=== PATIENT | female | born 1995 | race Caucasian/White ===

== ENCOUNTER 2019-01-01 03:37 | Inpatient (IN) ==
[2019-01-01] MEDS ORDERED: Isovue-370 500 ML BOTTLE IVP ONE (03:39)
--- NOTE | 2019-01-01 04:17 | Emergency Department Note ---
Disposition Clinical Impression: Septic embolism, IV drug user, Neck pain Fever Qualifiers: Fever type: unspecified Qualified Code(s): R50.9 - Fever, unspecified Headache Qualifiers: Headache type: unspecified Headache chronicity pattern: acute headache Intractability: not intractable Qualified Code(s): R51 - Headache Disposition: Admitted As Inpatient Condition: Fair Referrals: NONE,PCP [Primary Care Provider] - Forms: ED Satisfaction Letter General Adult HPI - General Chief complaint: ED Fever Time Seen by Provider: 01/01/19 03:39 Source: patient, EMS Mode of arrival: EMS Limitations: altered mental status Nursing Notes Reviewed: Yes Vital Signs Reviewed: Yes - History of Present Illness HPI Narrative: 23-year-old female previously seen a few hours ago and left AMA. Please refer to previous documentation for full history of present illness. Patient states she is "ready to get checked out". In the room she is thrashing around on the bed. Alert and oriented. Patient denies any new symptoms at this time. Pain Scale: 0 - Related Data Home Medications Medication Instructions Recorded Confirmed Albuterol Sulfate [Ventolin Hfa] 2 puff IH QID PRN 12/31/18 12/31/18 Allergies Allergy/AdvReac Type Severity Reaction Status Date / Time No Known Allergies Allergy Verified 01/05/16 15:08 All systems ED: reviewed and negative except as stated. Constitutional: Reports: fever Eyes: Reports: as per HPI ENT ED: Reports: as per HPI Cardiovascular: Denies: chest pain Respiratory: Reports: cough Gastrointestinal: Reports: as per HPI Genitourinary: Reports: as per HPI Musculoskeletal: Reports: neck pain, arthralgia Integumentary: Reports: as per HPI Neurological: Reports: headache Psychiatric: Reports: as per HPI Endocrine: Reports: as per HPI Hematological/Lymphatic: Reports: as per HPI Allergic/Immunologic: Reports: as per HPI Past Medical History - Past Medical History Attestation: Yes The following information was validated with the patient. 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 - Social History Smoking Status: Current every day smoker Smokeless Tobacco Status: No Alcohol use: Reports: none Drug use: Reports: opiates, marijuana, methamphetamine, IV Drug Use, prescription drug abuse Physical Exam - General Limitations: altered mental status General appearance: appears intoxicated, anxious - Head Head exam: atraumatic, normocephalic, normal inspection - Eye Eye exam: Absent: scleral icterus - ENT ENT exam: mucous membranes moist, other (Ulcerations around the mouth) - Neck Neck exam: Present: full ROM - Chest Chest inspection: Present: symmetric chest wall rise - Respiratory Respiratory exam: Present: normal lung sounds bilaterally. Absent: respiratory distress, wheezes - Cardiovascular Cardiovascular exam: Present: normal rhythm, tachycardia, irregular rhythm - Abdominal Exam Abdominal exam: Present: soft, Non-Tender. Absent: distention, guarding, rebound - Extremities Exam Extremities exam: Present: full ROM - Neurological Exam Neurological exam: Present: alert - Psychiatric Psychiatric exam: Present: agitated, anxious - Skin Skin exam: Present: warm Course Course Narrative: 23-year-old female presenting for fever, headache and neck pain. Please refer to previous documentation for further history of present illness. Patient left prior to CT scans could be completed. We will perform a CTA of the chest and a CT of the head at this time. We will also then perform a lumbar puncture. Disposition will most likely be admission but pending results. Patient agrees with this plan. - Reevaluation(s) Reevaluation #1: Patient CT of the head within normal limits. LP completed and showed elevated total nucleated cells at 6. Otherwise within normal limits. CT of the chest shows multiple septic emboli. At this time patient has already received vancomycin, ceftriaxone, and acyclovir. We will plan to admit the patient for further treatment and evaluation for possible endocarditis. Patient spinal fluid is pending culture as well. Patient at this time is somnolent but arousable. Hemodynamically stable. I spoke with the hospitalist on-call who agrees to accept the patient at this time. He would like us to add azithromycin at this time. Vital Signs Temperature 98.9 F 01/01/19 03:56 Pulse Rate 136 01/01/19 03:56 Respiratory Rate 20 01/01/19 03:56 Blood Pressure 99/55 01/01/19 03:56 O2 Sat by Pulse Oximetry 99 01/01/19 03:56 Temperature 98.9 F 01/01/19 03:56 Pulse Rate 136 01/01/19 03:56 Respiratory Rate 20 01/01/19 03:56 Blood Pressure 99/55 01/01/19 03:56 O2 Sat by Pulse Oximetry 99 01/01/19 03:56 Oxygen Delivery Oxygen Delivery Room Air Procedures - Lumbar Puncture Consent Obtained: verbal consent Time Out Performed: Yes Patient Position: left lateral decubitus Skin Prep: Povidone-Iodine 1% Local Anesthetic: lidocaine 1% Amount of anesthesia used (mL): 3 Spinal Needle Gauge: 20G Interspace Used: L3-L4 Fluid Initially Obtained: clear Complications: none Medical Decision Making - Lab Data Lab Results 01/01/19 Range/Units 05:58 CSF Volume 4.0 mL CSF Appearance Clear (Clear) CSF Color Colorless (Colorless) CSF RBC < 0.002 (0.000 - 0.002) M/mcL CSF Tot Nucleated Cells 6 H (0-5) TNC/mcL CSF Glucose 60 (40-70) mg/dL CSF Xanth Comm Not Observed (Not Observe) CSF Total Protein 25 (15-45) mg/dL
--- NOTE | 2019-01-01 04:49 | Emergency Department Note ---
Disposition Clinical Impression: Septic embolism, IV drug user, Neck pain Fever Qualifiers: Fever type: unspecified Qualified Code(s): R50.9 - Fever, unspecified Headache Qualifiers: Headache type: unspecified Headache chronicity pattern: acute headache Intractability: not intractable Qualified Code(s): R51 - Headache Disposition: Admitted As Inpatient Condition: Fair Referrals: NONE,PCP [Primary Care Provider] - Forms: ED Satisfaction Letter General Adult HPI - General Chief complaint: ED Fever Time Seen by Provider: 01/01/19 03:39 Source: patient, EMS Mode of arrival: EMS Limitations: altered mental status Nursing Notes Reviewed: Yes Vital Signs Reviewed: Yes - History of Present Illness Pain Scale: 0 - Related Data Home Medications Medication Instructions Recorded Confirmed Albuterol Sulfate [Ventolin Hfa] 2 puff IH QID PRN 12/31/18 12/31/18 Allergies Allergy/AdvReac Type Severity Reaction Status Date / Time No Known Allergies Allergy Verified 01/05/16 15:08 Constitutional: Reports: fever Eyes: Reports: as per HPI ENT ED: Reports: as per HPI Cardiovascular: Denies: chest pain Respiratory: Reports: cough Gastrointestinal: Reports: as per HPI Genitourinary: Reports: as per HPI Musculoskeletal: Reports: neck pain, arthralgia Integumentary: Reports: as per HPI Neurological: Reports: headache Psychiatric: Reports: as per HPI Endocrine: Reports: as per HPI Hematological/Lymphatic: Reports: as per HPI Allergic/Immunologic: Reports: as per HPI Past Medical History - Past Medical History Medical history: Reports: asthma Psychiatric history: Reports: anxiety, bipolar 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 - Social History Smoking Status: Current every day smoker Smokeless Tobacco Status: No Alcohol use: Reports: none Drug use: Reports: opiates, marijuana, methamphetamine, IV Drug Use, prescription drug abuse Physical Exam - General Limitations: altered mental status General appearance: appears intoxicated, anxious Course Vital Signs Temperature 98.9 F 01/01/19 03:56 Pulse Rate 136 01/01/19 03:56 Respiratory Rate 20 01/01/19 03:56 Blood Pressure 99/55 01/01/19 03:56 O2 Sat by Pulse Oximetry 99 01/01/19 03:56 Temperature 98.9 F 01/01/19 03:56 Pulse Rate 136 01/01/19 03:56 Respiratory Rate 20 01/01/19 03:56 Blood Pressure 99/55 01/01/19 03:56 O2 Sat by Pulse Oximetry 99 01/01/19 03:56 Oxygen Delivery Oxygen Delivery Room Air Medical Decision Making - Lab Data Lab results reviewed: Yes I reviewed the patient's lab results. Lab Results 01/01/19 Range/Units 05:58 CSF Volume 4.0 mL CSF Appearance Clear (Clear) CSF Color Colorless (Colorless) CSF RBC < 0.002 (0.000 - 0.002) M/mcL CSF Tot Nucleated Cells 6 H (0-5) TNC/mcL CSF Glucose 60 (40-70) mg/dL CSF Xanth Comm Not Observed (Not Observe) CSF Total Protein 25 (15-45) mg/dL - Radiology Data Radiology results reviewed: Yes I reviewed the patient's radiology results. Chest CTA 01/01/19 03:39 IMPRESSION: Numerous scattered peripheral predominant ground-glass and part solid nodular opacities throughout the bilateral lungs are highly suspicious for septic pulmonary thromboemboli. The largest in the posterior basilar segment of the left lower lobe measures 2.3 cm and demonstrates mild central cavitation. Additional considerations include multifocal pneumonia and atypical infectious organisms. No intrathoracic lymphadenopathy. D/ / Ru Cabrera / Ru Sessions Interpreting Provider: Ru Cabrera Head CT 01/01/19 03:39 IMPRESSION: No acute intracranial abnormality. D/ / Yobani Ames MD / Yobani Ames MD Interpreting Provider: Yobani Ames MD Attestation Statement - Attestation Attestation: I, Raul Coats MD, personally evaluated this patient and discussed their management with the resident physician. I reviewed the resident's note and agree with the documented findings, medical decision making, and plan of care. This patient was just seen here a few hours ago and left AMA. Please refer to notes from her previous visit for complete details of history and physical examination. Patient presented with headache and fever and body aches and bilateral knee pain. She refused a CT of the head and CTA of the chest and lumbar puncture and left AMA. She returns now by EMS after she was apparently found by the police wandering in the streets and stepping in front of cars. She apparently had needles in her possession which she stole when she was here earlier. Patient agrees to stay now and have the further testing. On examination patient is a well-developed well-nourished young female in no acute distress. She does appear to be under the influence of drugs. She responds and answers questions appropriately. Breath sounds are clear and equal bilaterally. Abdomen soft and nontender with present bowel sounds. Heart is regular with a mild tachycardia in the 120s. She was about 160 initially on her previous visit. Head CT was negative. Lumbar puncture performed. CTA of the lungs showed septic pulmonary emboli. Patient had antibiotics initiated at her earlier visit. I reviewed the residents documentation and agree with the residents assessment and plan of care. I have personally had face to face time with the patient. I personally supervised and was present for the dockery/critical portions of the following procedures completed by the resident: Lumbar puncture. The hospitalist, Dr. Gates, was consulted and accepted admission of the patient.
[2019-01-01 06:04] LABS: Appearance,CSF Clear (Clear)
[2019-01-01 06:09] LABS: Red Blood Cell,CSF < 0.002 M/mcL
[2019-01-01 06:35] LABS: Glucose,CSF 60 mg/dL (40-70); Total Protein,CSF 25 mg/dL (15-45)
[2019-01-01] MEDS ORDERED: Azithromycin 500 MG in D5% in Water 250 ML IVPB ONE (06:45)
[2019-01-01] MEDS ORDERED: Naloxone 0.4 MG/ML INJ IVP PRN (07:09)
[2019-01-01] MEDS ORDERED: Dexamethasone 4 MG/ML VIAL IVP SCH (07:30)
[2019-01-01] MEDS ORDERED: Acetaminophen 325 MG TABLET PO PRN (07:36)
[2019-01-01] MEDS ORDERED: 0.9 % Sodium Chloride 1,000 ML IVC ONE (07:41)
[2019-01-01] MEDS ORDERED: 0.9 % Sodium Chloride 1,000 ML IVC SCH (07:45)
[2019-01-01] MEDS ORDERED: 0.9 % Sodium Chloride 1,000 ML ONE ×2 (07:48→12:37)
[2019-01-01] MEDS ORDERED: Acyclovir 750 MG in D5% in Water 250 ML IVPB SCH (08:00)
[2019-01-01 08:40] LABS: Basophils % 0.1 %; Red Cell Distribution Width 12.8 % (11.5-14.5)
--- NOTE | 2019-01-01 08:40 | Internal Med History&Physical ---
Date of Encounter: 01/01/19 Time of Encounter: 08:00 Internal Medicine - H&P: HPI Chief complaint: Fevers, headache and neck pain for about 4 days History of present illness: Ms. Horvtah is a 23 year old female with pmh of IV drug abuse presenting with complaints of fevers, neck pain and headache of about 4 days duration. Patient is not able to provide a full history as she is lethargic at bedside and difficult to arouse. Patient complains of feeling really sick all over and this started approximately 4 days ago. She says her symptoms are intermittent. She also complains of left knee pain and has a noticeable effusion around the left knee joint. She is unable to tell me when the swellling started. She complains of occasional non productive cough. Her last known drug use was reportedly on sunday. Se was initially in the ER last night where she was noted to have a fever but left AMA after refusing an LP, CT head and CT chest. She came back later in the night and had an LP done showing a mildly levated WBC at 6 and 80% lymphocytes and CT chest showing multiple septic pulmonary emboli. She is being admitted for further management Past Med Surg Social Fam HX - Past Medical History Medical history: asthma Additional medical history: cervical cancer Psychiatric history: anxiety, bipolar - Social History Smoking Status: Current every day smoker Smokeless Tobacco Status: No Alcohol use: none Drug use: opiates, marijuana, methamphetamine, IV Drug Use, prescription drug abuse - Family History Mother Adopted: No Living Status: Still Living Hx Family Cancer: Yes (BREAST CANCER) Internal Medicine - H&P: Meds Albuterol Sulfate [Ventolin Hfa] 2 puff IH QID PRN 12/31/18 [History] Allergy/AdvReac Type Severity Reaction Status Date / Time No Known Allergies Allergy Verified 01/05/16 15:08 All Systems PM: A 10-system review of systems was performed and is negative for pertinent findings except as documented above in the HPI. - Constitutional Constitutional: fever(s), malaise, no chills, no night sweats - EENT Eyes: no change in vision, no discharge, no pain, no photophobia Ears: no ear discharge, no ear pain, no tinnitus Nose, mouth and throat: no dysphagia, no nasal discharge, no neck pain, no sore throat - Cardiovascular Cardiovascular ROS IM: no chest pain, no diaphoresis, no dyspnea, no lightheadedness, no palpitations, no syncope - Respiratory Respiratory: cough, no dyspnea, no wheezing, no excessive phlegm production - Gastrointestinal Gastrointestinal: no abdominal pain, no diarrhea, no hematemesis, no hematochezia, no melena, no nausea, no vomiting - Genitourinary Genitourinary: no change in urinary stream, no dysuria, no flank pain, no hematuria - Musculoskeletal Musculoskeletal ROS IM: no numbness, no tingling - Integumentary Integumentary IM: no rash, no unusual bruising - Neurological Neurological ROS: headache(s), no confusion, no convulsions, no focal weakness, no numbness, no tingling, no tremor(s) - Hematologic/Lymphatic Hematologic/Lymphatic: no easy bruising - Constitutional Vitals: Temp Pulse Resp BP Pulse Ox 96.3 F L 99 16 79/51 99 01/01/19 07:33 01/01/19 07:33 01/01/19 07:33 01/01/19 07:33 01/01/19 07:33 Exam: Lethargic. Difficult to arouse Left knee joint warm and swollen - Head Head exam: Present: atraumatic, normocephalic - Eye Eye exam: Present: PERRL, conjuntiva pink, sclera anicteric Pupils: Present: PERRL - Neck Neck exam general surgery: Present: supple, trachea midline. Absent: lymphadenopathy - Respiratory Respiratory exam: Present: CTAB. Absent: accessory muscle use, rales, rhonchi, wheezes - Cardiovascular Cardiovascular exam: Present: RRR, +S1, +S2. Absent: diastolic murmur, gallop, rubs, systolic murmur - GI/Abdominal GI/Abdominal exam: Present: normal bowel sounds, soft, no peritoneal signs. Absent: distended, tenderness - Extremities Exam Extremities exam: Present: warm, radial pulses palpable and symmetrical. Absent: calf tenderness, cyanotic, pedal edema - Neurological Exam Neurological exam: Present: CN II-XII intact, oriented X3, no focal deficits. Absent: pronater drift, facial droop, speech deficit - Skin Skin exam: Present: dry, intact Internal Med - H&P Results - Labs CBC & Chem 7: 01/01/19 08:22 01/01/19 08:22 - Impressions ITS Impressions Chest CTA 01/01/19 03:39 IMPRESSION: Numerous scattered peripheral predominant ground-glass and part solid nodular opacities throughout the bilateral lungs are highly suspicious for septic pulmonary thromboemboli. The largest in the posterior basilar segment of the left lower lobe measures 2.3 cm and demonstrates mild central cavitation. Additional considerations include multifocal pneumonia and atypical infectious organisms. No intrathoracic lymphadenopathy. D/ / Ru Sessions / Ru Sessions Interpreting Provider: Ru Sessions Head CT 01/01/19 03:39 IMPRESSION: No acute intracranial abnormality. D/ / Yobani Ames MD / Yobani Ames MD Interpreting Provider: Yobani Ames MD - Assessment and Plan (1) Severe sepsis Current Visit: Yes Status: Acute Assessment and plan: Pt comes in with fever of 104 , tachycardia up to the 130 adn hypotension with BP in the 70s likely due to severe sepsis Differentials include severe sepsis from viral meningitis vs multifocal pneumonia vs infective endocarditis vs septic arthritis -Viral meningitis. CSF shows mildly elevated WBC at 6 with 80% lymphocytes. On vanc ceftriaxone and acyclovir. -Multifocal pneumonia- chest CT shows multiple scattered groud glass opacities. On antibiotics. Azithromycin for atypical coverage. Obtain cultures, urine strep and legionella antigen -Infective endocarditis- Known IV drug abuse with septic emboli on CT chest. Continue antibiotics, obtain 2D echo -Septic arthirits- Left knee joint warm and swollen to touch. On antibiotics. Orthpedic surgery consulted Neurology and ID consulted and recs appreciated . Pulm consulted for hypotension and cavitary lung lesions. Continue aggressive fluid resuscitation and antibiotics (2) Viral meningitis Current Visit: Yes Status: Acute Assessment and plan: See #1. Continue vanc, ceftriaxone, acyclovir and dexamethasone. Neurology recs appreciated Fevr f 104, CSF showed increased lymphocytes (3) Multifocal pneumonia Current Visit: Yes Status: Acute Assessment and plan: See #1. Continue on broad spectrum antibiotics. Obtain cultures (4) Infective endocarditis Current Visit: Yes Status: Acute Assessment and plan: Obtain 2D echo and cultures. Continue antibiotics ID recs appreciated Qualifiers: Qualified Code(s): I33.0 - Acute and subacute infective endocarditis (5) Septic arthritis Current Visit: Yes Status: Acute Assessment and plan: Left knee joint warm and swollen. Orthopedic surgery consulted for arthrocentesis On antibiotics Qualifiers: Qualified Code(s): M00.9 - Pyogenic arthritis, unspecified (6) DVT prophylaxis Current Visit: Yes Status: Acute Assessment and plan: heparin sc - Time Spent With Patient Total time spent is greater than 50% in coordination of care (as documented) at patient's floor/unit and/or counseling patient:
[2019-01-01 08:42] LABS: Hematocrit 23.7 % (35.3-44.9); Hemoglobin 8.2 g/dL (11.5-15.4); Immature Granulocytes % 1.4 % (0-4); Immature Platelets 4.1 % (1.1-6.1); Lymphocytes # 0.9 K/mcL (0.6-4.6); Lymphocytes % 13.1 %; Mean Corpuscular HGB Conc 34.6 g/dL (31.6-35.5); Mean Corpuscular Hemoglobin 29.8 pg (28.0-33.3); Mean Corpuscular Volume 86.2 fL (83.0-100.0); Mean Platelet Volume 10.4 fL (9.4-12.4); Monocytes # 0.9 K/mcL (0.0-1.3); Monocytes % 13.3 %; Red Blood Count 2.75 M/mcL (3.82-4.97); Segmented Neutrophils % 72.1 %
[2019-01-01 08:44] LABS: Neutrophils # 5.1 K/mcL (1.6-8.9); Platelet Count 87 K/mcL (140-400)
[2019-01-01 08:56] LABS: BUN/Creatinine Ratio 16 (6-26); Blood Urea Nitrogen 15 mg/dL (6-20); Calcium 7.7 mg/dL (8.6-10.3); Carbon Dioxide 23 mEq/L (23-29); Chloride 102 mEq/L (98-107); Glucose 146 mg/dL (70-105); Magnesium 1.4 mg/dL (1.6-2.6); Osmolality,Calculated 277 (280-300); Phosphorous 3.3 mg/dL (2.7-4.5); Potassium 3.2 mEq/L (3.5-5.1); Sodium 132 mEq/L (136-145); eGFR For Non-African Americans > 60 (> 60)
[2019-01-01] MEDS ORDERED: cefTRIAXone 1,000 MG in Water for inj. (sterile) 20 ML 10 ML IVP SCH (09:00)
[2019-01-01] MEDS ORDERED: Vancomycin 500 MG in 0.9 % Sodium Chloride Mini Bag 100 ML IVPB ONE (10:35)
[2019-01-01] MEDS ORDERED: Dexamethasone 10 MG/ML VIAL IVP SCH (10:45)
[2019-01-01 11:11] LABS: Platelet Estimate Slight Decrease (Normal)
[2019-01-01] MEDS ORDERED: 0.9 % Sodium Chloride 500 ML ONE (11:21)
--- NOTE | 2019-01-01 11:36 | Neurology - Consult Note ---
<Samir Linder J - Last Filed: 01/01/19 14:17> Date of Encounter: 01/01/19 Time of Encounter: 11:31 Assessment and Plan (1) Severe sepsis Current Visit: Yes Status: Acute Presents with severe sepsis multifocal PNA vs septic emboli on CTA chest Also concerns for septic arthritis; however B/L knee XR unremarkable On ABX TTE pending Considering TTE Sepsis management per primary team -condition likely contributing to altered mental state (2) Viral meningitis Current Visit: Yes Status: Acute Do not suspect that this is viral meningitis Encephalopathic presentation on admission h/o IVDU Neuro was consulted with concerns for meningitis 4-day h/o subjective fever, headache, and neck pain as well as one episode of vomiting; declined workup in ED and left AMA Represented via EMS after being found in a confused state with needles on her person (had taken needles from the ED) CT head unremarkable CTA chest revealing multifocal PNA vs septic emboli LP completed; CSF clear, WBC's of 6, no glucose or protein No fevers or leukocytosis noted; however, given h/o IVDU risk for immunocompromise. Chemistry reveals hyponatremia, hypokalemia, hypocalcemia and hypomagnesemia Exam: Neuro exam is non focal, she is A&Ox3, and does not appear to be encephalopathic. There are no meningeal signs and she is currently denying headache and neck pain. We do not suspect that this is viral meningitis. WBC's of 6; one would expect a more significant elevation of WBC's in spinal fluid with viral meningitis also, we do not suspect bacterial meningitis either. However, herpes encephalitis cannot be fully excluded. Her altered mental status could be explained by illicit drug use as when she was found she had needles in her possession. Further, she also appears to be septic; CTA chest finding multifocal PNA vs septic emboli and she is meeting 4 SIRS criteria plus she has multiple metabolic derangements. Underlying illness and metabolic abnormalities further complicating mental state. However, as mentioned previously she is progressing back to baseline mental status. Continue to closely monitor. Recommendations are as follows. PLAN Continue Acyclovir for now EEG to further help determine whether or not she may have herpes encephalitis CSF PCR Recommend STI panel including Hepatitis and HIV w/u Blood cultures pending Continue ABX per IM team for management of suspected sepsis Replete electrolytes per IM team Pulmonology, ID, and ortho seeing in consultation; recommendations appreciated Continue medical and supportive care Neurology will continue to follow History of Present Illness Chief complaint: fevers, headaches, neck pain x4 days and AMS HPI: Ms. Horvath is a 23 year old female with a PMH of anxiety, bipolar and IV drug use. Neurology consulted due to altered state, fevers, headache and neck pain 4 days and concerns for meningitis. The time of my assessment this morning the patient appears to be anxious and weeping but also easily agitated. She reports that she can remember "bits and pieces" of the events pertaining to her admission. She states that yesterday she came into the ED for evaluation because she was having a headache, neck pain and diffuse joint pain for 4 days. She remembers signing out AGAINST MEDICAL ADVICE and refusing lumbar puncture and further workup. However, she does not remember presenting to the ED after being found wandering the streets with an altered mental state. Again, she does have a history of IV drug use and notes recent use. Today on my exam she denies joint pain, headache, or neck pain. She does note some intermittent subjective fevers. However, since admission she has not had any fevers and there is no evidence of leukocytosis. Workup in the ED yesterday included CT of the head which was negative for acute intracranial abnormality, chest CTA found numerous scattered peripheral predominant groundglass and part solid nodular opacities throughout the bilateral lungs which are highly suspicious for septic pulmonary thromboemboli. Knee x-ray obtained finding no acute osseous abnormality or significant joint effusions bilaterally. LP completed with CSF revealing clear spinal fluid with total nucleated cells of 6, no neutrophils or glucose or protein noted. Past Med Surg Social Fam HX - Past Medical History Medical history: asthma Additional medical history: cervical cancer Psychiatric history: anxiety, bipolar - Social History Smoking Status: Current every day smoker Smokeless Tobacco Status: No Alcohol use: none Drug use: opiates, marijuana, methamphetamine, IV Drug Use, prescription drug abuse - Family History Mother Adopted: No Living Status: Still Living Hx Family Cancer: Yes (BREAST CANCER) Medications and Allergies Albuterol Sulfate [Ventolin Hfa] 2 puff IH QID PRN 12/31/18 [History] Allergy/AdvReac Type Severity Reaction Status Date / Time No Known Allergies Allergy Verified 01/01/19 09:15 All Systems: The remainder of the systems were reviewed and are negative Review of Systems: REVIEW OF SYSTEMS GENERAL: Positive-subjective fevers, fatigue and malaise NEUROLOGIC: Negative for any blurry vision, blind spots, double vision, facial asymmetry, dysphagia, dysarthria, hemiparesis, hemisensory deficits, vertigo, ataxia, seizures, paralysis, tingling, numbness, unilateral weakness or numbness/tingling Positive-headaches, neck pain; these have since resolved, positive for confusion PSYCH: +agitation/irritability, anxiety HEENT: + Headache and neck pain which she reports has resolved CARDIAC: Negative for any chest pain, dyspnea PULMONARY: Negative for any shortness of breath, wheezing MUSCULOSKELETAL: Diffuse joint pain INTEGUMENTARY: Negative for any rashes, eruptions, dryness, changes in skin/yuliya r, nailsg. Physical Examination - Vital Signs Vital Signs: Initial Vital Signs Temp Pulse Resp BP Pulse Ox 98.9 F 136 20 99/55 99 01/01/19 03:56 01/01/19 03:56 01/01/19 03:56 01/01/19 03:56 01/01/19 03:56 - Exam Exam: Examination: General Examination: *CONSTITUTIONAL: Alert and oriented x3, no acute distress, *GENERAL APPEARANCE OF PATIENT appears healthy and well groomed *EYES: pupils equal, round, reactive to light and accommodation, conjunctiva clear *CARDIOVASCULAR no peripheral edema, distal temperature normal, dorsalis pedis pulses normal. See vital signs Musculoskeletal: *GAIT AND STATION normal, with normal Romberg testing, no abnormalities such as broad base gait or spasticity *ASSESSMENT OF MUSCLE STRENGTH IN THE UPPER AND LOWER EXTREMITIES bilateral deltoid, bicep, tricep, handle bar assembler strength, hip flexors ,anterior tibialis, dorsoflexion of the foot 5/5 *MUSCLE TONE IN THE UPPER AND LOWER EXTREMITIES normal. No abnormal movements, fasciculations or atrophy identified. Neurological: *ORIENTATION to person, situation, time and place *RECURRENT AND REMOTE MEMORY intact *ATTENTION AND CONCENTRATION are normal *LANGUAGE FUNCTION no significant aphasia or dysarthia was noted. *FUND OF KNOWLEDGE aware of current events, past history, vocabulary *MENTAL attention span and concentration normal. *CN II optic fundi were normal, no papilledema noted. *CN III,IV, PERRLA extraocular eye movements were full, no nystagmus and no ptosis noted. *CN V shows normal sensation and jaw opens symmetrically. *CN VII shows normal facial movement symmetrically, upper and lower bilaterally. *CN VIII shows no significant hearing loss on exam *CN IX,,X palate elevated symmetrically *CN XI normal strength in the sternocleidomastoid muscles, symmetrical shoulder shrugging. *CN XII tongue protruded in the midline, with normal strength and movement. *SENSORY EXAMINATION light touch intact *REFLEXES: deep tendon reflexes were normal and symmetrical , grade 2/4 diffusely, no pathological reflexes were noted. *CEREBELLAR TESTING normal finger to nose, heel/knee/mario *PAIN LEVEL 0 Results - Laboratory Findings CBC and BMP: 01/01/19 08:22 01/01/19 08:22 Abnormal lab findings: Abnormal lab results RBC 2.75 M/mcL (3.82-4.97) L 01/01/19 08:22 Hgb 8.2 g/dL (11.5-15.4) L D 01/01/19 08:22 Hct 23.7 % (35.3-44.9) L 01/01/19 08:22 Plt Count 87 K/mcL (140-400) L 01/01/19 08:22 Slight Decrease (Normal) L 01/01/19 08:22 Sodium 132 mEq/L (136-145) L 01/01/19 08:22 Potassium 3.2 mEq/L (3.5-5.1) L 01/01/19 08:22 Glucose 146 mg/dL (70-105) H 01/01/19 08:22 277 (280-300) L 01/01/19 08:22 Calcium 7.7 mg/dL (8.6-10.3) L 01/01/19 08:22 Magnesium 1.4 mg/dL (1.6-2.6) L 01/01/19 08:22 CSF Tot Nucleated Cells 6 TNC/mcL (0-5) H 01/01/19 05:58 - Diagnostic Findings Additional findings: CT/CT angio chest IMPRESSION: Numerous scattered peripheral predominant ground-glass and part solid nodular opacities throughout the bilateral lungs are highly suspicious for septic pulmonary thromboemboli. The largest in the posterior basilar segment of the left lower lobe measures 2.3 cm and demonstrates mild central cavitation. Additional considerations include multifocal pneumonia and atypical infectious organisms. No intrathoracic lymphadenopathy. CT/CT head/brain wo con IMPRESSION: No acute intracranial abnormality. Consult Discharge Plan - Plan Referrals: NONE,PCP [Primary Care Provider] - <Jose Andujar - Last Filed: 01/01/19 16:48> Date of Encounter: 01/01/19 Assessment and Plan (1) Severe sepsis Current Visit: Yes Status: Acute I agree with the assessment by the CMP as stated above. (2) Viral meningitis Current Visit: Yes Status: Acute Chart was reviewed, case was discussed with the ANATOMIC PATHOLOGY ASSISTANT. I have personally performed a [id number] assessment of the patient and have reviewed the PA/PROFESSOR OF LITERATURE note. My impressions are as follows: Since the above assessment; she has been consulted and ID has seen the patient. They also agreed that the likelihood of a central nervous system infectious processes not likely. I considered the possibility that she could be immunocompromised which is why I suggested the EEG. She declined the EEG. I agree with the likelihood that she is encephalopathic from the underlying infectious process. She is being switched to oral acyclovir. I will reevaluate the necessity for EEG in the morning. History of Present Illness HPI: The chart was reviewed, the patient was seen and examined independently. Case was discussed with the ANATOMIC PATHOLOGY ASSISTANT. I agree with his documentation as outlined above. Patient is currently awake however somewhat drowsy. Her headache is improved. I did review the results of the LP and it is very unlikely that we are dealing with a central nervous system infectious process. She has no nuchal rigidity. She does have nodular opacities throughout the lungs bilaterally which are suspicious for septic pulmonary emboli she does have a history of IV drug abuse. HIV and hepatitis panels are pending. Patient declined the EEG which I initially ordered with the thought of perhaps he would dealing with herpetic encephalitis. CT of the head revealed no acute abnormalities particularly no evidence of temporal lobe enhancement or inflammation. All Systems: The remainder of the systems were reviewed and are negative Review of Systems: Balance of the systems review is negative. Physical Examination - Vital Signs Vital Signs: Initial Vital Signs Temp Pulse Resp BP Pulse Ox 98.9 F 136 20 99/55 99 01/01/19 03:56 01/01/19 03:56 01/01/19 03:56 01/01/19 03:56 01/01/19 03:56 - Exam Exam: I have personally performed a [id number] assessment of the patient and have reviewed the PA/PROFESSOR OF LITERATURE note. My impressions are as follows: I did perform a complete neurologic examination on this patient. I agree with the neurologic examination as documented above. Results - Laboratory Findings CBC and BMP: 01/01/19 08:22 01/01/19 08:22 Abnormal lab findings: Abnormal lab results RBC 2.75 M/mcL (3.82-4.97) L 01/01/19 08:22 Hgb 8.2 g/dL (11.5-15.4) L D 01/01/19 08:22 Hct 23.7 % (35.3-44.9) L 01/01/19 08:22 Plt Count 87 K/mcL (140-400) L 01/01/19 08:22 Slight Decrease (Normal) L 01/01/19 08:22 Sodium 132 mEq/L (136-145) L 01/01/19 08:22 Potassium 3.2 mEq/L (3.5-5.1) L 01/01/19 08:22 Glucose 146 mg/dL (70-105) H 01/01/19 08:22 277 (280-300) L 01/01/19 08:22 Calcium 7.7 mg/dL (8.6-10.3) L 01/01/19 08:22 Magnesium 1.4 mg/dL (1.6-2.6) L 01/01/19 08:22 0.3 mg/dL (0.0-0.2) H 01/01/19 13:44 5.4 g/dL (6.4-8.9) L 01/01/19 13:44 3.1 g/dL (3.5-5.7) L 01/01/19 13:44 2.3 g/dL (2.4-3.5) L 01/01/19 13:44 CSF Tot Nucleated Cells 6 TNC/mcL (0-5) H 01/01/19 05:58 Positive ng/mL (Bvsygt=857) H 01/01/19 13:40 Ur Amphetamines Screen Positive ng/mL (Gtaaab=2785) H 01/01/19 13:40 U Marijuana (THC) Screen Positive ng/mL (Cutoff = 50) H 01/01/19 13:40
--- NOTE | 2019-01-01 12:34 | Orthopedic Consult Note ---
Date of Encounter: 01/01/19 Time of Encounter: 08:45 Assessment and Plan (1) IV drug user Current Visit: Yes Status: Acute (2) Joint swelling Current Visit: Yes Status: Acute (3) Erythema Current Visit: Yes Status: Acute left knee History of Present Illness Chief complaint: per record b/l knee pain and polyarthralgia HPI: Ms. Horvath is a 23 year old female presenting to [facility] via EMS after being found wandering in street. Patient not presently awake and unable to be aroused at this time therefore history per record. Patient noted to have septic pulmonary emboli with history of IV drug abuse and history of multiple sexual partners. Patient resting comfortably on cot. Patient on exam not able to be aroused with verbal, touch or even with palpation and rom testing of lower extremities. Respers noted 16. On exam left knee mildly swollen with faint erythema to anterior knee. No fluctuance or appreciated effusion. Right knee unremarkable. Abrasion to right mario noted no tract marking noted to RLE. No appreciable calf warmth or erythema bilaterally. Neurovascualrly intact to b/l LE. B/l UE noted to have numerous injection sites, left greater than right. xray report as follows: XR/XR knee BI 3V IMPRESSION: 1. No acute osseous abnormality of either knee. 2. No significant joint effusions. D/ / Cedric Mckeon MD / Cedric Mckeon MD Case discussed with Dr. Calero. At this point given patient's presentation and concern for cardiopulm and neuro involvement of infectious sources, left knee could also be septic joint. Given patient's history, coverage for sti related i nfection should also be considered. However, given patient's clinical picture, would delay surgical irrigation via arthroscopy until more medically stabilized and if knee persists to be erythematous and swollen following IV abx administration. We will continue to follow and reevaluate at another time when patient able to be aroused. Thank you for this consultation. Past Med Surg Social Fam HX - Past Medical History Medical history: asthma Additional medical history: cervical cancer Psychiatric history: anxiety, bipolar - Social History Smoking Status: Current every day smoker Smokeless Tobacco Status: No Alcohol use: none Drug use: opiates, marijuana, methamphetamine, IV Drug Use, prescription drug abuse - Family History Mother Adopted: No Living Status: Still Living Hx Family Cancer: Yes (BREAST CANCER) Medications and Allergies Albuterol Sulfate [Ventolin Hfa] 2 puff IH QID PRN 12/31/18 [History] Allergy/AdvReac Type Severity Reaction Status Date / Time No Known Allergies Allergy Verified 01/01/19 09:15 All Systems Reviewed: The remainder of the systems were reviewed and are negative Physical Exam - Constitutional Vitals: Temp Pulse Resp BP Pulse Ox 97.4 F L 95 22 88/59 95 01/01/19 09:59 01/01/19 09:59 01/01/19 09:59 01/01/19 11:44 01/01/19 09:59 Results - Labs Result Diagrams: 01/01/19 08:22 01/01/19 08:22 Labs: Abnormal lab results RBC 2.75 M/mcL (3.82-4.97) L 01/01/19 08:22 Hgb 8.2 g/dL (11.5-15.4) L D 01/01/19 08:22 Hct 23.7 % (35.3-44.9) L 01/01/19 08:22 Plt Count 87 K/mcL (140-400) L 01/01/19 08:22 Slight Decrease (Normal) L 01/01/19 08:22 Sodium 132 mEq/L (136-145) L 01/01/19 08:22 Potassium 3.2 mEq/L (3.5-5.1) L 01/01/19 08:22 Glucose 146 mg/dL (70-105) H 01/01/19 08:22 277 (280-300) L 01/01/19 08:22 Calcium 7.7 mg/dL (8.6-10.3) L 01/01/19 08:22 Magnesium 1.4 mg/dL (1.6-2.6) L 01/01/19 08:22 CSF Tot Nucleated Cells 6 TNC/mcL (0-5) H 01/01/19 05:58 H & H 01/01/19 Range/Units 08:22 Hgb 8.2 L D (11.5-15.4) g/dL Hct 23.7 L (35.3-44.9) % All other labs normal. Consult Discharge Plan - Plan Referrals: NONE,PCP [Primary Care Provider] -
[2019-01-01] MEDS: 0.9 % Sodium Chloride 1,000 ML IVC SCH ×3 (12:53→21:55)
--- NOTE | 2019-01-01 13:11 | Infectious Disease Consult ---
Infectious Disease-Consult - Encounter Date/Time Date of Encounter: 01/01/19 Time of Encounter: 13:04 - Data of Consult Patient: new to practice Reason for consult: "meningitis" Consult date: 01/01/19 Requesting Physician: David Gates MD Primary Care Provider: PCP NONE - HPI HPI: Patient is 23-year-old woman who presented to [facility] on 01/01/2019 with fever and we are consulted for "meningitis" Patient is a 23-year-old woman who has a past medical history significant for asthma. Patient social history is significant for patient living at home with her mom. She works at a [employer]. She is slightly drug use. She tells me last time she used was 2 weeks ago. Patient apparently came in with fe vers feeling weak and tired and actually very depressed and apparently was trying to hurt herself. Since admission, patient has been afebrile, tachycardic and tachypneic. She has also been hypotensive. Presenting labs revealed a WBC of 7 with normal differential no bands. BUN/Cr 15/0.91. An LP revealed WBC 68% neutrophils. Protein 25. Gram stain negative. Glucose 60. Imaging included CT of the chest which revealed numerous scattered peripheral predominantly groundglass and part solid nodular opacities throughout the bilateral lungs are have suspicious for septic pulmonary thromboemboli. CT of the head shows no acute intracranial abnormalities. Currently patient laying in bed. Appears distraught. She crying frequently. She also feels that she is crying junction and was treated and treated as "drugged junkie". Review of system is negative for headache or neck stiffness. Patient denies any URI symptoms. No sinus pressure. No sore throat. She does have cough with sputum production. No pleuritic chest pain. Patient denies any nausea or vomiting or diarrhea. No urinary symptoms. - ROS Review of Systems: 10 point review of systems done, negative other for what is mentioned in history of present illness - Results CBC & Chem 7: 01/01/19 08:22 01/01/19 08:22 - Exam Vitals: Temp Pulse Resp BP Pulse Ox 97.4 F L 95 22 88/59 95 01/01/19 09:59 01/01/19 09:59 01/01/19 09:59 01/01/19 11:44 01/01/19 09:59 Exam: patient seen with sitter in the room HEAD: Normocephalic atraumatic EYES: PERRLA, EOMI, no conjunctival hemorrhage, sclera anicteric ENT: Mucous membranes moist, no oral thrush NECK: Supple. No meningeal signs. No masses LUNGS: Chest expanding symmetrically. Lungs sounds audible both lung evans. No wheezing, no rhonchi CV: RRR, S1S2, ABDOMEN: Soft, nontender, nondistended. Bowel sounds audible BACK: No CVA tenderness. Normal inspection. No tenderness over the spine. Band-Aid over the LP site EXTREMITY: Adequate perfusion. No joint effusion. SKIN: Normal color. Has track phelps on bilateral arms NEURO: Awake alert oriented 3. No obvious focal deficit PSYCH: Calm but easily agitated and slightly anxious. Albuterol Sulfate [Ventolin Hfa] 2 puff IH QID PRN 12/31/18 [History] Allergy/AdvReac Type Severity Reaction Status Date / Time No Known Allergies Allergy Verified 01/01/19 09:15 - Assessment and Plan (1) Septic embolism Current Visit: Yes Status: Acute Noted on the CT chest 01/01/2019 Likely secondary to bacteremia with septic emboli Patient high risk specially with IV drug use Last time she used IV drugs was last Sunday; physical exam is negative for endocarditis stigmata. No heart murmur appreciated and no spinal tenderness or joint effusion Get MRSA screen stat Get blood cultures 3 stat Stop Rocephin Stop azithromycin Agree with the vancomycin Start Zosyn SNOMED Code(s): 025820495, 316475392 (2) IV drug user Current Visit: Yes Status: Acute Last time she used was 2 weeks prior to admission Check HIV, hepatitis B and hepatitis C SNOMED Code(s): 787893402 (3) Headache Current Visit: Yes Status: Acute Resolved. No signs of encephalitis or meningitis on clinical picture LP reviewed WBC count 6 with 85% neutrophils, negative Gram stain, normal glucose and protein Stop high-dose Rocephin We will continue with the acyclovir but not for HSV encephalitis but because she has cold sores Switch acyclovir to oral option Qualifiers: Headache type: unspecified Headache chronicity pattern: acute headache Intractability: not intractable Qualified Code(s): R51 - Headache SNOMED Code(s): 84864463 (4) Anxiety Current Visit: Yes Status: Acute Might need a psychiatric evaluation SNOMED Code(s): 64447050 (5) Herpes labialis without complication Current Visit: Yes Status: Acute DC IV acyclovir Start oral Valtrex 1 gram po bid x 1 day SNOMED Code(s): 5554846 Past Med Surg Social Fam HX - Past Medical History Medical history: asthma Additional medical history: cervical cancer Psychiatric history: anxiety, bipolar - Social History Smoking Status: Current every day smoker Smokeless Tobacco Status: No Alcohol use: none Drug use: opiates, marijuana, methamphetamine, IV Drug Use, prescription drug abuse - Family History Mother Adopted: No Living Status: Still Living Hx Family Cancer: Yes (BREAST CANCER) Consult Discharge Plan - Plan Referrals: NONE,PCP [Primary Care Provider] -
[2019-01-01 14:29] LABS: Amphetamine Screen,Urine Positive ng/mL (Cutoff=1000); Barbiturate Screen,Urine Negative ng/mL (Cutoff=200); Benzodiazepines Screen,Urine Negative ng/mL (Cutoff=200); Cannabinoid Screen,Urine Positive ng/mL (Cutoff = 50); Cocaine Screen,Urine Negative ng/mL (Cutoff= 300); Opiate Screen,Urine Positive ng/mL (Cutoff=300); Phencyclidine Screen,Urine Negative ng/mL (Cutoff=25)
[2019-01-01 14:51] LABS: Albumin 3.1 g/dL (3.5-5.7); Albumin/Globulin Ratio 1.3 (1.1-2.2); Bilirubin,Direct 0.3 mg/dL (0.0-0.2); Bilirubin,Indirect 0.2 mg/dL (0.0-1.2); Bilirubin,Total 0.5 mg/dL (0.3-1.0); Globulin 2.3 g/dL (2.4-3.5); Total Protein 5.4 g/dL (6.4-8.9)
[2019-01-01 15:17] LABS: Hepatitis B Surface Antibody 78.21 mIU/mL
[2019-01-01 15:28] LABS: Hepatitis B Surface Antigen Nonreactive (Nonreactive)
--- NOTE | 2019-01-01 16:51 | Pulmonology Consult Note ---
Date of Encounter: 01/01/19 Time of Encounter: 16:50 Assessment and Plan (1) Multifocal pneumonia Status: Acute I have discussed with infectious disease and agree with plan of care. This is suspicious for septic emboli and from pulmonary standpoint treatment with antibiotics that has been recommended by infectious disease is very appropriate and we will not plan for any invasive testing such as bronchoscopy. Patient stated she is taking inhalers and she has history of smoking. She was advised to quit smoking and bronchodilators is recommended if she has symptoms. Thank richard galdamez for consultation and please call for any questions. History of Present Illness Consult date: 01/01/19 Requesting physician: Anju Cee Reason for consult: pneumonia Chief complaint: Dyspnea History of present illness: This is a 23 year old female with significant IV drug abuse who came to the hospital with fever and headache and neck pain for few days. She is poor historian and she is lethargic. Patient came to the hospital and then signed AMA after she refused procedure. She admit smoking tobacco and she use inhalers occasionally and she denies any history of asthma or COPD. She has been treated for bactremia and she had CT chest with evidence of septic pulmonary emboli and pulmonary and ID consulted after she was admitted to the hospital. Past Med Surg Social Fam HX - Past Medical History Medical history: asthma Additional medical history: cervical cancer Psychiatric history: anxiety, bipolar - Social History Smoking Status: Current every day smoker Smokeless Tobacco Status: No Alcohol use: none Drug use: opiates, marijuana, methamphetamine, IV Drug Use, prescription drug abuse - Family History Mother Adopted: No Living Status: Still Living Hx Family Cancer: Yes (BREAST CANCER) Medications and Allergies Albuterol Sulfate [Ventolin Hfa] 2 puff IH QID PRN 12/31/18 [History] Allergy/AdvReac Type Severity Reaction Status Date / Time No Known Allergies Allergy Verified 01/01/19 16:46 All Systems: The remainder of the systems were reviewed and are negative Physical Examination Vital Signs: Refer to nursing documentation General appearance: appears uncomfortable Eyes: nonicteric ENT: oropharynx dry Neck: supple, no lymphadenopathy Effort: normal Inspection: normal Auscultation: bilateral: rhonchi Percussion: bilateral: not dull Cardiovascular: regular rate and rhythm Gastrointestinal: normoactive bowel sounds, non-distended Integumentary: rash Extremities: no cyanosis normal mental status, non-focal exam depressed Results - Laboratory Findings CBC and BMP: 01/03/19 08:00 01/03/19 08:00 Abnormal lab findings: Abnormal lab results RBC 2.75 M/mcL (3.82-4.97) L 01/01/19 08:22 Hgb 8.2 g/dL (11.5-15.4) L D 01/01/19 08:22 Hct 23.7 % (35.3-44.9) L 01/01/19 08:22 Plt Count 87 K/mcL (140-400) L 01/01/19 08:22 Slight Decrease (Normal) L 01/01/19 08:22 Sodium 132 mEq/L (136-145) L 01/01/19 08:22 Potassium 3.2 mEq/L (3.5-5.1) L 01/01/19 08:22 Glucose 146 mg/dL (70-105) H 01/01/19 08:22 277 (280-300) L 01/01/19 08:22 Calcium 7.7 mg/dL (8.6-10.3) L 01/01/19 08:22 Magnesium 1.4 mg/dL (1.6-2.6) L 01/01/19 08:22 0.3 mg/dL (0.0-0.2) H 01/01/19 13:44 5.4 g/dL (6.4-8.9) L 01/01/19 13:44 3.1 g/dL (3.5-5.7) L 01/01/19 13:44 2.3 g/dL (2.4-3.5) L 01/01/19 13:44 CSF Tot Nucleated Cells 6 TNC/mcL (0-5) H 01/01/19 05:58 Positive ng/mL (Ngkfff=890) H 01/01/19 13:40 Ur Amphetamines Screen Positive ng/mL (Vrksjo=2982) H 01/01/19 13:40 U Marijuana (THC) Screen Positive ng/mL (Cutoff = 50) H 01/01/19 13:40 - Microbiology Findings Microbiology Findings: Microbiology, Last 48 Hours 01/01/19 15:39 Blood Culture - Preliminary Peripheral Venipuncture Culture is incubating and being continuously monitored for growth. Final report to follow. 01/01/19 13:44 Blood Culture - Preliminary Peripheral Venipuncture Culture is incubating and being continuously monitored for growth. Final report to follow. 01/01/19 13:44 Blood Culture - Preliminary Peripheral Venipuncture Culture is incubating and being continuously monitored for growth. Final report to follow. 01/01/19 05:58 Cryptococcal Antigen - Final Cerebral Spinal Fluid 01/01/19 05:58 CSF Culture - Preliminary Cerebral Spinal Fluid - Diagnostic Findings CT scan - chest: report reviewed, image reviewed - Clinical Findings Intake & Output: Intake & Output 01/01/19 01/01/19 01/01/19 07:59 15:59 23:59 Intake Total 1275 / 1275 0 / 1275 Output Total 1000 / 1000 Balance 275 / 275 0 / 275 Weight 68.039 kg Consult Discharge Plan - Plan Referrals: NONE,PCP [Primary Care Provider] -
[2019-01-01] MEDS: *HR* Heparin 5,000 UNIT/ML VIAL SQ SCH (17:58)
[2019-01-01] MEDS: Piperacillin/Tazobactam 3.375 GM in 0.9 % Sodium Chloride Mini Bag 100 ML IVPB SCH (18:20)
[2019-01-01 21:32] LABS: Hepatitis C Virus Antibody Reactive (Nonreactive)
[2019-01-01] MEDS: valACYclovir 500 MG TABLET PO SCH (21:55)
[2019-01-02] MEDS: Piperacillin/Tazobactam 3.375 GM in 0.9 % Sodium Chloride Mini Bag 100 ML IVPB SCH ×2 (00:17→10:13)
[2019-01-02] MEDS: 0.9 % Sodium Chloride 1,000 ML IVC SCH ×3 (05:07→21:28)
[2019-01-02] MEDS: *HR* Heparin 5,000 UNIT/ML VIAL SQ SCH ×2 (05:08→16:57)
[2019-01-02 06:30] LABS: Basophils % 0.1 %; Eosinophils % 0.1 %; Hematocrit 24.6 % (35.3-44.9); Hemoglobin 8.5 g/dL (11.5-15.4); Immature Granulocytes % 1.4 % (0-4); Lymphocytes # 1.2 K/mcL (0.6-4.6); Lymphocytes % 13.5 %; Mean Corpuscular HGB Conc 34.6 g/dL (31.6-35.5); Mean Corpuscular Hemoglobin 29.7 pg (28.0-33.3); Mean Platelet Volume 10.6 fL (9.4-12.4); Monocytes # 0.5 K/mcL (0.0-1.3); Monocytes % 5.6 %; Neutrophils # 7.2 K/mcL (1.6-8.9); Platelet Count 119 K/mcL (140-400); Red Blood Count 2.86 M/mcL (3.82-4.97); Red Cell Distribution Width 13.2 % (11.5-14.5); Segmented Neutrophils % 79.3 %
[2019-01-02] MEDS ORDERED: Azithromycin 500 MG in D5% in Water 250 ML IVPB SCH (08:00)
[2019-01-02 08:27] LABS: % Iron Saturation 31 % (15-50); BUN/Creatinine Ratio 34 (6-26); Blood Urea Nitrogen 13 mg/dL (6-20); Calcium 7.7 mg/dL (8.6-10.3); Carbon Dioxide 22 mEq/L (23-29); Chloride 113 mEq/L (98-107); Creatine Kinase 131 Units/L (30-223); Glucose 136 mg/dL (70-105); Iron 67 mcg/dL (50-170); Magnesium 1.8 mg/dL (1.6-2.6); Osmolality,Calculated 286 (280-300); Phosphorous 2.4 mg/dL (2.7-4.5); Potassium 4.2 mEq/L (3.5-5.1); Sodium 137 mEq/L (136-145); Transferrin 156 mg/dL (203-362); eGFR For Non-African Americans > 60 (> 60)
[2019-01-02 08:41] LABS: Acinetobacter baumannii by PCR Not Detected (Not Detect); Candida albicans by PCR Not Detected (Not Detect); Candida glabrata by PCR Not Detected (Not Detect); Candida krusei by PCR Not Detected (Not Detect); Candida parapsilosis by PCR Not Detected (Not Detect); Candida tropicalis by PCR Not Detected (Not Detect); Enterobacter cloacae Cmplx PCR Not Detected (Not Detect); Enterobacteriaceae by PCR Not Detected (Not Detect); Enterococcus by PCR Not Detected (Not Detect); Escherichia coli by PCR Not Detected (Not Detect); Klebsiella oxytoca by PCR Not Detected (Not Detect); Klebsiella pneumoniae by PCR Not Detected (Not Detect); Proteus by PCR Not Detected (Not Detect); Pseudomonas aeruginosa by PCR Not Detected (Not Detect); Serratia marcescens by PCR Not Detected (Not Detect); Staphylococcus aureus by PCR DETECTED (Not Detect); Staphylococcus by PCR DETECTED (Not Detect); Streptococcus agalactiae(B)PCR Not Detected (Not Detect); Streptococcus by PCR Not Detected (Not Detect); Streptococcus pneumoniae PCR Not Detected (Not Detect); Streptococcus pyogenes (A) PCR Not Detected (Not Detect); mecA Methicillin-Resist Gene DETECTED (Not Detect)
[2019-01-02] MEDS: valACYclovir 500 MG TABLET PO SCH ×2 (08:46→21:28)
--- NOTE | 2019-01-02 10:06 | Internal Med Progress Note ---
Hospitalist Progress Note - Encounter Date of Encounter: 01/02/19 Time of Encounter: 10:06 - Subjective Interval History: According to nursing, patient being noncompliant with treatment plan and wants to leave but is currently pink-slipped. During my interview patient was also agitated and wanted to go home. Review the lab with low hemoglobin but no ac tive bleeding noticed. Blood culture gram-positive cocci Denies fevers, chills, or rigors. Denies chest pain, shortness of breath, or cough. Denies nausea, vomiting, diarrhea, or constipation. Denies abdominal pain or urinary complaints. - Exam Vitals: Temp Pulse Resp BP Pulse Ox 98.0 F 85 16 95/64 96 01/02/19 07:30 01/02/19 07:30 01/02/19 07:30 01/02/19 07:30 01/01/19 18:20 Exam: General appearance: No acute distress, Head exam: Atraumatic Eye exam: EOMI, PERRLA ENT exam: Moist oral mucosa Neck nontender, supple Respiratory exam: Clear to auscultation bilaterally Cardiovascular exam: Regular rate and rhythm, no systolic murmur Abdominal exam: Soft, nontender, nondistended, positive bowel sounds Extremities exam: No calf tenderness, no pedal edema Present: Skin-no rash. Neurological exam: Alert, awake, oriented 3, CN II-XII intact, no focal deficits. No facial droop. Psych-agitated, not cooperative - Assessment and Plan (1) Severe sepsis Current Visit: Yes Status: Acute Assessment and Plan: Pt comes in with fever of 104 , tachycardia up to the 130 adn hypotension with BP in the 70s likely due to severe sepsis Differentials include severe sepsis from viral meningitis vs multifocal pneumonia vs infective endocarditis vs septic arthritis -Viral meningitis. CSF shows mildly elevated WBC at 6 with 80% lymphocytes. On vanc ceftriaxone and acyclovir- neurologist on board and is stopped ceftriaxone. -Multifocal pneumonia- chest CT shows multiple scattered groud glass opacities. On antibiotics. Azithromycin for atypical coverage. Obtain cyerpvmt-oqyk-dhzrvkrl cocci urine strep and legionella antigen-negative -Infective endocarditis- Known IV drug abuse with septic emboli on CT chest. Continue antibiotics vancomycin and Zosyn. ID consultation. , obtained 2D echo- impressions: LVEF 60%. Indeterminate diastolic function. Normal right ventricular structure and function. Mild tricuspid regurgitation. Mild pulmonic regurgitation. No pulmonary hypertension. No valvular vegetation. Left Ventricular Wall Motion: Rest Echo Findings All wall segments showed normal motion. -Septic arthirits- Left knee joint warm and swollen to touch. On antibiotics. Orthpedic surgery consulted-advise for medical management and continuation of antibiotic (2) Bacteremia Current Visit: Yes Status: Acute Assessment and Plan: Blood cultures drawn 12/31/18 are positive 2/2 sets for MRSA. Repeat blood cultures drawn 01/01/19 are positive as well. Continue vancomycin. ID on board (3) Multifocal pneumonia Current Visit: Yes Status: Acute Assessment and Plan: Based on CT chest report as mentioned above. Reviewed lighting director note -there is suspicion for septic emboli in from pulmonary standpoint treatment with antibiotic as per ID recommendation. No plan for invasive testing such as bronchoscopy. Patient is chronic a smoker and advised to quit smoking. Continue DuoNeb. (4) Viral meningitis Current Visit: Yes Status: Acute Assessment and Plan: Suspected based on above clinical presentation. Neurologist consulted and has low suspicion for a viral meningitis but advise to continue acyclovir as patient also has herpes labialis and unable to fully exclude herpes encephalitis as cause of altered mental status. HIV and hepatitis B nonreactive but hepatitis C reactive-possible chronic hepatitis C On admission started patient on vanc, ceftriaxone, acyclovir and dexamethasone. Appreciate neurology recommendations (5) Infective endocarditis Current Visit: Yes Status: Acute Assessment and Plan: Complicated due to septic emboli in the lungs. No endocarditis stigmata noted on exam. TTE negative for vegetations. Continue Vanc and Zosyn. (6) Septic arthritis Current Visit: Yes Status: Acute Assessment and Plan: Left knee joint warm and swollen. Orthopedic surgery on board as mentioned above (7) Anemia Current Visit: Yes Status: Acute Assessment and Plan: Low hemoglobin but no active bleeding. Iron profile, ferritin, vitamin B12 and folic acid ordered. A stool occult ordered. Will transfuse PRC if hemoglobin less than 7 or active bleeding (8) Altered mental status Current Visit: Yes Status: Acute Assessment and Plan: Unknown baseline. Patient has been very agitated and refusing medical treatment. Unclear about her mental capacity to make decision and understanding. Patient also got pink slipped in the ER. Therefore psychiatric consulted-of note,Does not meet criteria for inpatient mental health treatment but would say she does not have the capacity to sign out AMA based on her lack of understanding of her physical health issues.Recommend inpatient residential rehab when she is medically clear. Also recommend monitoring for and treating any withdrawal which might be masked by her sepsis. Client unwilling to disclose what drugs she is currently doing but suspect she is abusing multiple substances. Can use Haldol and Ativan as needed for agitation. Would also recommend a [facility] to [facility]. 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 Denies suicidal or homicidal thoughts or ideas (9) DVT prophylaxis Current Visit: Yes Status: Acute Assessment and Plan: heparin sc (10) Goals of care, counseling/discussion Current Visit: Yes Status: Acute Assessment and Plan: spent more than 35 minutes inpatient care and communication with patient, nursing staff and consultants - Time Spent with Patient Total time spent is greater than 50% in coordination of care (as documented) at patient's floor/unit and/or counseling patient: Greater than 35 minutes Plan of Care Discussed with: health consultant Internal Medicine: Result - Labs CBC & Chem 7: 01/02/19 06:08 01/02/19 06:08 Labs: Short CBC 01/01/19 01/02/19 Range/Units 08:22 06:08 WBC 9.1 (4.3-11.1) K/mcL Hgb 8.5 L (11.5-15.4) g/dL Hct 24.6 L (35.3-44.9) % Plt Count 119 L (140-400) K/mcL Neutrophils # 5.1 7.2 (1.6-8.9) K/mcL BMP 01/02/19 06:08 Sodium 137 Potassium 4.2 D Chloride 113 H Carbon Dioxide 22 L BUN 13 Creatinine 0.38 L Glucose 136 H Calcium 7.7 L Liver Function 01/01/19 Range/Units 13:44 Total Bilirubin 0.5 (0.3-1.0) mg/dL Direct Bilirubin 0.3 H (0.0-0.2) mg/dL AST 28 (13-39) Units/L ALT 19 (7-52) Units/L Alkaline Phosphatase 84 (34-104) Units/L Albumin 3.1 L (3.5-5.7) g/dL - Impressions Impressions Echocardiogram 01/01/19 07:11 Impressions: LVEF 60%. Indeterminate diastolic function. Normal right ventricular structure and function. Mild tricuspid regurgitation. Mild pulmonic regurgitation. No pulmonary hypertension. No valvular vegetation. Left Ventricular Wall Motion: Rest Echo Findings All wall segments showed normal motion. Findings: Study Quality * Technically adequate exam. ECG Findings * Normal sinus rhythm. Left Ventricle * LVEF 60%. * Normal LV chamber size, wall thickness and function. * Indeterminate diastolic function. Right Ventricle * Normal right ventricular structure and function. Left Atrium * Normal left atrial size. Right Atrium * Normal right atrial size. Mitral Valve * Normal mitral valve structure. * No mitral regurgitation. * No mitral stenosis. Aortic Valve * Trileaflet aortic valve. * No aortic regurgitation. * No aortic stenosis. Tricuspid Valve * Normal tricuspid valve structure. * Mild tricuspid regurgitation. * Estimated RA pressure is 8 mmHg. * Estimated RVSP is 25 mmHg. * No pulmonary hypertension. Pulmonic Valve * Pulmonic valve is not well visualized. * No pulmonic stenosis. * Mild pulmonic regurgitation. Pulmonary Artery * Pulmonary artery not well visualized. Aorta * Normally sized aortic root. Pericardium * There is no pericardial effusion present. Interatrial Septum * No evidence of PFO by color Doppler. IVC * The IVC is not dilated. * < 50% respiratory change. Consult Discharge Plan - Plan Referrals: NONE,PCP [Primary Care Provider] - (5) Infective endocarditis Qualifiers: Qualified Code(s): I33.0 - Acute and subacute infective endocarditis (6) Septic arthritis Qualifiers: Qualified Code(s): M00.9 - Pyogenic arthritis, unspecified (7) Anemia Qualifiers: Anemia type: unspecified type Qualified Code(s): D64.9 - Anemia, unspecified (8) Altered mental status Qualifiers: Altered mental status type: unspecified Qualified Code(s): R41.82 - Altered mental status, unspecified
--- NOTE | 2019-01-02 10:59 | Infectious Disease Progress No ---
ID Progress Note Date of Encounter: 01/02/19 Time of Encounter: 09:45 - Subjective Subjective: Patient seen and examined. No acute events noted overnight. According to nursing, patient being noncompliant with treatment plan and wants to leave but is currently pink-slipped. Denies fevers, chills, or rigors. Denies chest pain, shortness of breath, or cough. Denies nausea, vomiting, diarrhea, or constipation. Denies abdominal pain or urinary complaints. Denies back, joint, or extremity pain. Denies oral thrush or skin lesions. - Objective CBC & Chem 7: 01/02/19 06:08 01/02/19 06:08 - Exam Vitals: Temp Pulse Resp BP Pulse Ox 98.0 F 85 16 94/54 96 01/02/19 07:30 01/02/19 07:30 01/02/19 07:30 01/02/19 10:15 01/01/19 18:20 Exam: Head: Atraumatic, normal inspection, normocephalic. Eye: EOMI, PERRLA, no scleral icterus noted. No subconjunctival hemorrhage noted. ENT: Mucous membranes moist. No odontogenic infection noted. Scabbed lesions noted to the upper and lower lips. Neck: Normal inspection, no meningismus. Respiratory: Clear to auscultation. No rales, respiratory distress, rhonchi, or wheezes noted. Cardiovascular: Regular rate and rhythm, S1 and S2 audible. No murmurs, rubs, or gallops. GI: Soft, nondistended, normal bowel sounds. Extremities:No joint swelling, pedal edema, or tenderness noted. No endocarditis stigmata noted. Back: Normal inspection. No vertebral tenderness noted. Neurological: Alert, oriented 3, no focal deficits. Psychiatric: normal affect, normal mood. Skin: Dry, intact, warm. Normal color. No rashes. - Assessment and Plan (1) Severe sepsis Current Visit: Yes Status: Acute The patient had two SIRS criteria with hypotension responsive to IV fluids on admission. Likely secondary to bacteremia. Improved. Tachycardia and tachypnea resolved. Continues to have some hypotension. Blood cultures drawn 12/31/18 are positive 2/2 sets for MRSA. Repeat blood cultures drawn 01/01/19 are positive 2/2 sets as well. SNOMED Code(s): 26424106 (2) Bacteremia Current Visit: Yes Status: Acute Causative organism: MRSA. Source: IVDU Blood cultures drawn 12/31/18 are positive 2/2 sets for MRSA. Repeat blood cultures drawn 01/01/19 are positive as well. Complicated due to septic emboli in the lungs. No endocarditis stigmata noted on exam. TTE negative for vegetations. Currently on Vanc and Zosyn. SNOMED Code(s): 5044304 (3) Septic embolism Current Visit: Yes Status: Acute Noted on the CT chest 01/01/2019. Likely secondary to bacteremia with septic emboli. SNOMED Code(s): 595164923, 306720795 (4) Headache Current Visit: Yes Status: Resolved Resolved. No signs of encephalitis or meningitis on clinical picture. LP reviewed WBC count 6 with 85% neutrophils, negative Gram stain, normal glucose and protein. Qualifiers: Qualified Code(s): R51 - Headache SNOMED Code(s): 03953511 (5) Herpes labialis without complication Current Visit: Yes Status: Acute Oral Valtrex 1 gram po bid x 1 day SNOMED Code(s): 6462773 (6) IV drug user Current Visit: Yes Status: Acute Last time she used was 2 weeks prior to admission. HIV nonreactive. Hep B immune. Hep C positive. SNOMED Code(s): 246488758 (7) Hepatitis C Current Visit: Yes Status: Acute Qualifiers: Qualified Code(s): B18.2 - Chronic viral hepatitis C SNOMED Code(s): 34836066 (8) Anxiety Current Visit: Yes Status: Acute Currently pink-slipped by the ER physician and non-compliant with treatment plan and wants to sign out AMA. Might need a psychiatric evaluation. SNOMED Code(s): 85283850 - Recommendations Recommendations: Repeat blood cultures x 2 sets. Check rheumatoid factor. Recommend AGA prior to discharge. Continu Vancomycin IV. Pharmacy to dose. Goal trough ~15. Discontinue Zosyn. Duration of treatment depends on the clinical picture, but likely a total of 4-6 weeks. Monitor renal function and for drug toxicity and dose-adjust antibiotics. director of career services to assist with discharge planning. Avoid long-term IV access insertion until repeat blood cultures are negative x 48 hours. Psych consult for mental capacity/stability. Consult Discharge Plan - Plan Referrals: NONE,PCP [Primary Care Provider] - - Attending Attestation I have personally performed a face to face evaluation on this patient. I have reviewed and agree with the care plan. History and Exam by me shows: Assessment and plan: Severe sepsis Bacteremia with MRSA 4/4 sets positive Septic emboli to the lungs bilaterally Hepatitis C IV drug use Recommendations: Repeat blood cultures 2 TTE appreciated Will need AGA prior to discharge Continue vancomycin with goal vancomycin trough of 15 Stop Zosyn Continue droplet and contact precaution Will need long-term IV access insertion once blood cultures have been negative for 48 hours Monitor labs and for drug toxicity Give nicotine patch Gabapentin for restless leg syndrome
--- NOTE | 2019-01-02 11:10 | Consult Note ---
Date of Encounter: 01/02/19 Time of Encounter: 11:05 Assessment & Recommendation (1) Altered mental status Current visit: Yes Status: Acute Assessment & Recommendation: Client would not cooperate with any kind of assessment today. She rolled over in bed, closed her eyes, and would not answer any questions. She did say if this designer/writer would not recommend she be discharged then she would not talk. She was angry but not aggressive and did not make any attempts to get up. No known mental health history beyond significant AOD use. Definitely recommend inpatient rehab once she is medically stable. Since she is so medically compromised she should not be allowed to leave. Would say she does not have the capacity to make the decision to leave AMA as she is unable/unwilling to discuss with her providers what it is that is physically wrong with her, what the treatment recommendations are, and what the risks are of her leaving without being properly treated. She is not on any mental health medications that this designer/writer is aware of and would not recommend starting anything scheduled at this time. However, if she becomes agitated again can use prn meds to help calm her like Haldol 5mg and Ativan 2mg. Call if any questions. Qualifiers: Altered mental status type: unspecified Qualified Code(s): R41.82 - Altered mental status, unspecified History of Present Illness Requesting Physician: David Gates MD Reason for consult: Barnard Slip History of present illness: Ms. Horvath is a 23 year old female who presented to the hospital with multiple physical complaints. IV drug use. Positive for MRSA. Believed to have septic emboli. Febrile up to 104. Currently receiving IV antibiotics and feeling better. However, client wants to leave AMA. Reportedly a pink slip was written to prevent her from leaving as she is so medically compromised. On eval today client was noncooperative. She stated she was feeling fine to go and if this designer/writer was not going to recommend she be allowed to leave she did not want to talk. She rolled over, closed her eyes, and refused to answer any questions. No known mental health history other than IV drug use. Has been in the ER a couple of times due to opiate overdoses that responded to Narcan and she was then discharged. No previous 1A admissions that this designer/writer can find. Does not appear to be on any mental health medications. CC: David Gates MD Past Med Surg Social Fam HX - Past Medical History Medical history: asthma - Past Psychiatric History Psychiatric history: Reports: no psych history Family psychiatric history: Unknown Family History of Suicide: Unknown - Social History Smoking Status: Current every day smoker Smokeless Tobacco Status: No Alcohol use: none Drug use: opiates, marijuana, methamphetamine, IV Drug Use, prescription drug abuse - Family History Mother Adopted: No Living Status: Still Living Hx Family Cancer: Yes (BREAST CANCER) Medications & Allergies Albuterol Sulfate [Ventolin Hfa] 2 puff IH QID PRN 12/31/18 [History] Allergy/AdvReac Type Severity Reaction Status Date / Time No Known Allergies Allergy Verified 01/01/19 16:46 Review of Systems Constitutional: Reports: fever, weakness Eyes: Denies: eye pain, vision change Ears, Nose, Throat: Denies: ear pain, throat pain, dental pain, hearing loss, congestion Cardiovascular: Denies: chest pain, palpitations, dyspnea on exertion Respiratory: Denies: cough, dyspnea, wheezes Gastrointestinal: Denies: abdominal pain, nausea, vomiting, diarrhea, constipation Genitourinary female: Denies: urgency, dysuria, frequency, abnormal menses, dyspareunia Musculoskeletal: Reports: myalgia Integumentary: Denies: rash, lesions, pruritus Neurological: Reports: headache Endocrine: Denies: fatigue, heat or cold intolerance Hematologic/Lymphatic: Reports: other Allergic/Immunologic: Denies: urticaria, itchy eyes Psychiatry Exam - Constitutional Vitals: Temp Pulse Resp BP Pulse Ox 98.0 F 85 16 94/54 96 01/02/19 07:30 01/02/19 07:30 01/02/19 07:30 01/02/19 10:15 01/01/19 18:20 General appearance: unkempt - Musculoskeletal Gait: other Station: relaxed Strength & Tone: normal for patient - Psychiatric Patient Orientation: Yes Person, Yes Time, Yes Place Level of alertness: Alert Behavior: uncooperative Psychomotor activity: Normal Eye Contact: No Eye Contact Mood Description: Angry Affect description: congruent with mood Speech Volume: Normal Speech pattern: normal rate, normal rhythm, normal tone, fluent, spontaneous Language & Vocabulary: consistent with education Thought Process: Evasive Patient Reliability: Not Reliable Historian Judgment: Poor Insight: Minimal Results - Drug Levels and Toxicology Drug Levels and Toxicology: Drug Levels and Toxicity 01/01/19 13:40 Urine Opiates Screen Positive H Ur Barbiturates Screen Negative Ur Phencyclidine Scrn Negative Ur Amphetamines Screen Positive H U Benzodiazepines Scrn Negative Urine Cocaine Screen Negative U Marijuana (THC) Screen Positive H - Labs Labs: Laboratory Last Values WBC 9.1 K/mcL (4.3-11.1) 01/02/19 06:08 RBC 2.86 M/mcL (3.82-4.97) L 01/02/19 06:08 Hgb 8.5 g/dL (11.5-15.4) L 01/02/19 06:08 Hct 24.6 % (35.3-44.9) L 01/02/19 06:08 MCV 86.0 fL (83.0-100.0) 01/02/19 06:08 MCH 29.7 pg (28.0-33.3) 01/02/19 06:08 MCHC 34.6 g/dL (31.6-35.5) 01/02/19 06:08 RDW 13.2 % (11.5-14.5) 01/02/19 06:08 Plt Count 119 K/mcL (140-400) L 01/02/19 06:08 MPV 10.6 fL (9.4-12.4) 01/02/19 06:08 Immature Gran % 1.4 % (0-4) 01/02/19 06:08 Seg Neutrophils % 79.3 % 01/02/19 06:08 13.5 % 01/02/19 06:08 5.6 % 01/02/19 06:08 0.1 % 01/02/19 06:08 0.1 % 01/02/19 06:08 7.2 K/mcL (1.6-8.9) 01/02/19 06:08 1.2 K/mcL (0.6-4.6) 01/02/19 06:08 0.5 K/mcL (0.0-1.3) 01/02/19 06:08 0.0 K/mcL (0.0-0.6) 01/02/19 06:08 0.0 K/mcL (0.0-0.2) 01/02/19 06:08 Slight Decrease (Normal) L 01/01/19 08:22 Immature Plt Fraction 4.1 % (1.1-6.1) 01/01/19 08:22 Sodium 137 mEq/L (136-145) 01/02/19 06:08 Potassium 4.2 mEq/L (3.5-5.1) D 01/02/19 06:08 Chloride 113 mEq/L (98-107) H 01/02/19 06:08 Carbon Dioxide 22 mEq/L (23-29) L 01/02/19 06:08 BUN 13 mg/dL (6-20) 01/02/19 06:08 0.38 mg/dL (0.60-1.20) L 01/02/19 06:08 Est GFR ( Amer) > 60 (> 60) 01/02/19 06:08 Est GFR (Non-Af Amer) > 60 (> 60) 01/02/19 06:08 34 (6-26) H 01/02/19 06:08 Glucose 136 mg/dL (70-105) H 01/02/19 06:08 286 (280-300) 01/02/19 06:08 Calcium 7.7 mg/dL (8.6-10.3) L 01/02/19 06:08 Phosphorus 2.4 mg/dL (2.7-4.5) L 01/02/19 06:08 Magnesium 1.8 mg/dL (1.6-2.6) 01/02/19 06:08 Iron 67 mcg/dL (50-170) 01/02/19 06:08 % Saturation 31 % (15-50) 01/02/19 06:08 156 mg/dL (203-362) L 01/02/19 06:08 0.5 mg/dL (0.3-1.0) 01/01/19 13:44 0.3 mg/dL (0.0-0.2) H 01/01/19 13:44 0.2 mg/dL (0.0-1.2) 01/01/19 13:44 AST 28 Units/L (13-39) 01/01/19 13:44 ALT 19 Units/L (7-52) 01/01/19 13:44 84 Units/L (34-104) 01/01/19 13:44 131 Units/L (30-223) 01/02/19 06:08 5.4 g/dL (6.4-8.9) L 01/01/19 13:44 3.1 g/dL (3.5-5.7) L 01/01/19 13:44 2.3 g/dL (2.4-3.5) L 01/01/19 13:44 1.3 (1.1-2.2) 01/01/19 13:44 4.0 mL 01/01/19 05:58 Clear (Clear) 01/01/19 05:58 Colorless (Colorless) 01/01/19 05:58 < 0.002 M/mcL (0.000-0.002) 01/01/19 05:58 CSF Tot Nucleated Cells 6 TNC/mcL (0-5) H 01/01/19 05:58 CSF Seg Neutrophils 20.0 % 01/01/19 05:58 80.0 % 01/01/19 05:58 60 mg/dL (40-70) 01/01/19 05:58 CSF Xanth Comm Not Observed (Not Observe) 01/01/19 05:58 25 mg/dL (15-45) 01/01/19 05:58 Positive (Negative) A 01/01/19 20:28 Positive ng/mL (Dkrkai=104) H 01/01/19 13:40 Ur Barbiturates Screen Negative ng/mL (Yujlwq=335) 01/01/19 13:40 Ur Phencyclidine Scrn Negative ng/mL (Cutoff=25) 01/01/19 13:40 Ur Amphetamines Screen Positive ng/mL (Luwcov=6094) H 01/01/19 13:40 U Benzodiazepines Scrn Negative ng/mL (Yujetb=041) 01/01/19 13:40 Negative ng/mL (Cutoff= 300) 01/01/19 13:40 U Marijuana (THC) Screen Positive ng/mL (Cutoff = 50) H 01/01/19 13:40 Ur Drug Screen Interp See Below 01/01/19 13:40 A. baumannii (PCR) Not Detected (Not Detect) 01/01/19 13:44 Not Detected (Not Detect) 01/01/19 13:44 C. glabrata (PCR) Not Detected (Not Detect) 01/01/19 13:44 C. krusei (PCR) Not Detected (Not Detect) 01/01/19 13:44 C. parapsilosis (PCR) Not Detected (Not Detect) 01/01/19 13:44 C. tropicalis (PCR) Not Detected (Not Detect) 01/01/19 13:44 Enterobacteriac sp PCR Not Detected (Not Detect) 01/01/19 13:44 E. cloacae complex PCR Not Detected (Not Detect) 01/01/19 13:44 Enterococcus sp PCR Not Detected (Not Detect) 01/01/19 13:44 E. coli (PCR) Not Detected (Not Detect) 01/01/19 13:44 H. influenzae (PCR) Not Detected (Not Detect) 01/01/19 13:44 Hep Bs Antigen Nonreactive (Nonreactive) 01/01/19 13:44 Hep Bs Antibody 78.21 mIU/mL (10.00-) 01/01/19 13:44 Hepatitis C Ab Screen Reactive (Nonreactive) H 01/01/19 13:44 HIV Ag/Ab Combo Qual Nonreactive (Nonreactive) 01/01/19 13:44 Klebsiella oxytoca PCR Not Detected (Not Detect) 01/01/19 13:44 Klebsiella pneumoniae Not Detected (Not Detect) 01/01/19 13:44 List. monocytogenes PCR Not Detected (Not Detect) 01/01/19 13:44 N. meningitidis (PCR) Not Detected (Not Detect) 01/01/19 13:44 Not Detected (Not Detect) 01/01/19 13:44 Serratia marcescens PCR Not Detected (Not Detect) 01/01/19 13:44 Staphylococcus sp PCR DETECTED (Not Detect) A 01/01/19 13:44 Staph aureus (PCR) DETECTED (Not Detect) A 01/01/19 13:44 mecA-Methicil Res Gene DETECTED (Not Detect) A 01/01/19 13:44 Streptococcus sp PCR Not Detected (Not Detect) 01/01/19 13:44 Group A Strep DNA Not Detected (Not Detect) 01/01/19 13:44 Group B Strep (PCR) Not Detected (Not Detect) 01/01/19 13:44 Strep pneumoniae (PCR) Not Detected (Not Detect) 01/01/19 13:44 P. aeruginosa (PCR) Not Detected (Not Detect) 01/01/19 13:44 Don/B-Vanco Res Genes N/A (Not Detect) 01/01/19 13:44 KPC (blaKPC) Detect PCR N/A (Not Detect) 01/01/19 13:44 - Impressions Impressions Echocardiogram 01/01/19 07:11 Impressions: LVEF 60%. Indeterminate diastolic function. Normal right ventricular structure and function. Mild tricuspid regurgitation. Mild pulmonic regurgitation. No pulmonary hypertension. No valvular vegetation. Left Ventricular Wall Motion: Rest Echo Findings All wall segments showed normal motion. Findings: Study Quality * Technically adequate exam. ECG Findings * Normal sinus rhythm. Left Ventricle * LVEF 60%. * Normal LV chamber size, wall thickness and function. * Indeterminate diastolic function. Right Ventricle * Normal right ventricular structure and function. Left Atrium * Normal left atrial size. Right Atrium * Normal right atrial size. Mitral Valve * Normal mitral valve structure. * No mitral regurgitation. * No mitral stenosis. Aortic Valve * Trileaflet aortic valve. * No aortic regurgitation. * No aortic stenosis. Tricuspid Valve * Normal tricuspid valve structure. * Mild tricuspid regurgitation. * Estimated RA pressure is 8 mmHg. * Estimated RVSP is 25 mmHg. * No pulmonary hypertension. Pulmonic Valve * Pulmonic valve is not well visualized. * No pulmonic stenosis. * Mild pulmonic regurgitation. Pulmonary Artery * Pulmonary artery not well visualized. Aorta * Normally sized aortic root. Pericardium * There is no pericardial effusion present. Interatrial Septum * No evidence of PFO by color Doppler. IVC * The IVC is not dilated. * < 50% respiratory change. Consult Discharge Plan - Plan Referrals: NONE,PCP [Primary Care Provider] -
--- NOTE | 2019-01-02 11:24 | Neurology Progress Note ---
<Samir Linder J - Last Filed: 01/02/19 11:22> Date of Encounter: 01/02/19 Time of Encounter: 11:22 Assessment and Plan (1) Severe sepsis Current Visit: Yes Status: Acute (2) Viral meningitis Current Visit: Yes Status: Acute Clinically, the patient is alert and oriented 3 and does not appear to be altered mental status perspective. She is extremely agitated and declining neurological exam. Afebrile overnight and no leukocytes on CBC this morning With CSF showing WBCs of 6 I have low suspicion for viral meningitis. She has declined EEG; we will cancel at this time. HIV nonreactive, hepatitis B nonreactive, hepatitis C reactive; has chronic hepatitis C Continue oral acyclovir as we are unable to fully exclude herpes encephalitis as cause of altered mental state. I feel that most likely her altered mental state on admission was due to the underlying infectious process with MRSA bacteremia, severe sepsis and septic emboli. Neurology will sign off at this time. Please reconsult should any further need arise. Subjective Principal diagnosis: MRSA bacteremia, severe sepsis, septic emboli, altered mental state Interval history: Patient seen in follow-up for altered mental state. Throughout hospital course she has been found to have severe sepsis 2/2 MRSA bacteremia and septic emboli. Today she is alert and oriented 3 and extremely agitated. She is refusing to answer any questions and is declining to participate in examination. Objective - Constitutional Vitals: Temp Pulse Resp BP Pulse Ox 98.0 F 85 16 94/54 96 01/02/19 07:30 01/02/19 07:30 01/02/19 07:30 01/02/19 10:15 01/01/19 18:20 Exam: Declines examination Results - Laboratory Findings CBC and BMP: 01/02/19 06:08 01/02/19 06:08 Abnormal lab findings: Abnormal lab results RBC 2.86 M/mcL (3.82-4.97) L 01/02/19 06:08 Hgb 8.5 g/dL (11.5-15.4) L 01/02/19 06:08 Hct 24.6 % (35.3-44.9) L 01/02/19 06:08 Plt Count 119 K/mcL (140-400) L 01/02/19 06:08 Slight Decrease (Normal) L 01/01/19 08:22 Sodium 132 mEq/L (136-145) L 01/01/19 08:22 Potassium 3.2 mEq/L (3.5-5.1) L 01/01/19 08:22 Chloride 113 mEq/L (98-107) H 01/02/19 06:08 Carbon Dioxide 22 mEq/L (23-29) L 01/02/19 06:08 0.38 mg/dL (0.60-1.20) L 01/02/19 06:08 34 (6-26) H 01/02/19 06:08 Glucose 136 mg/dL (70-105) H 01/02/19 06:08 277 (280-300) L 01/01/19 08:22 Calcium 7.7 mg/dL (8.6-10.3) L 01/02/19 06:08 Phosphorus 2.4 mg/dL (2.7-4.5) L 01/02/19 06:08 Magnesium 1.4 mg/dL (1.6-2.6) L 01/01/19 08:22 156 mg/dL (203-362) L 01/02/19 06:08 0.3 mg/dL (0.0-0.2) H 01/01/19 13:44 5.4 g/dL (6.4-8.9) L 01/01/19 13:44 3.1 g/dL (3.5-5.7) L 01/01/19 13:44 2.3 g/dL (2.4-3.5) L 01/01/19 13:44 CSF Tot Nucleated Cells 6 TNC/mcL (0-5) H 01/01/19 05:58 Positive (Negative) A 01/01/19 20:28 Positive ng/mL (Dicxwg=096) H 01/01/19 13:40 Ur Amphetamines Screen Positive ng/mL (Cluizw=0497) H 01/01/19 13:40 U Marijuana (THC) Screen Positive ng/mL (Cutoff = 50) H 01/01/19 13:40 Hepatitis C Ab Screen Reactive (Nonreactive) H 01/01/19 13:44 Staphylococcus sp PCR DETECTED (Not Detect) A 01/01/19 13:44 Staph aureus (PCR) DETECTED (Not Detect) A 01/01/19 13:44 mecA-Methicil Res Gene DETECTED (Not Detect) A 01/01/19 13:44 Consult Discharge Plan - Plan Referrals: NONE,PCP [Primary Care Provider] - <ConJose Thomas - Last Filed: 01/02/19 13:16> Date of Encounter: 01/02/19 Assessment and Plan (1) Severe sepsis Current Visit: Yes Status: Acute (2) Viral meningitis Current Visit: Yes Status: Acute I have personally performed a [id number] assessment of the patient and have reviewed the PA/QUALITY ASSURANCE INTERN note. My impressions are as follows: I agree with the assessment and plan of the CMP as stated above. She was HIV nonreactive, and not likely immunocompromised. Without a mild do not feel any additional neurologic workup or testing are necessary. We will reevaluate your request. Subjective Interval history: Chart was reviewed, patient was seen and examined independently. I saw her earlier today she was dismissive as she has been to most of the staff. Low she has significant personality another issues, she is not encephalopathic. I will canceled the EEG. The case was discussed with the CLOUD SOFTWARE ENGINEER. I agree with his comments as stated above. Objective - Constitutional Vitals: Temp Pulse Resp BP Pulse Ox 98.1 F 95 18 90/58 96 01/02/19 11:30 01/02/19 11:30 01/02/19 11:30 01/02/19 11:30 01/01/19 18:20 Exam: Patient was noncooperative with the neurologic exam. However she was moving all 4 extremities, her eyes were open, she did not fixate on the examiner. She is able to communicate verbally her thoughts. She is requesting to be discharged although it is clear that she does not fully understand the seriousness of her current condition. Results - Laboratory Findings CBC and BMP: 01/02/19 06:08 01/02/19 06:08 Abnormal lab findings: Abnormal lab results RBC 2.86 M/mcL (3.82-4.97) L 01/02/19 06:08 Hgb 8.5 g/dL (11.5-15.4) L 01/02/19 06:08 Hct 24.6 % (35.3-44.9) L 01/02/19 06:08 Plt Count 119 K/mcL (140-400) L 01/02/19 06:08 Slight Decrease (Normal) L 01/01/19 08:22 Sodium 132 mEq/L (136-145) L 01/01/19 08:22 Potassium 3.2 mEq/L (3.5-5.1) L 01/01/19 08:22 Chloride 113 mEq/L (98-107) H 01/02/19 06:08 Carbon Dioxide 22 mEq/L (23-29) L 01/02/19 06:08 0.38 mg/dL (0.60-1.20) L 01/02/19 06:08 34 (6-26) H 01/02/19 06:08 Glucose 136 mg/dL (70-105) H 01/02/19 06:08 277 (280-300) L 01/01/19 08:22 Calcium 7.7 mg/dL (8.6-10.3) L 01/02/19 06:08 Phosphorus 2.4 mg/dL (2.7-4.5) L 01/02/19 06:08 Magnesium 1.4 mg/dL (1.6-2.6) L 01/01/19 08:22 156 mg/dL (203-362) L 01/02/19 06:08 0.3 mg/dL (0.0-0.2) H 01/01/19 13:44 5.4 g/dL (6.4-8.9) L 01/01/19 13:44 3.1 g/dL (3.5-5.7) L 01/01/19 13:44 2.3 g/dL (2.4-3.5) L 01/01/19 13:44 CSF Tot Nucleated Cells 6 TNC/mcL (0-5) H 01/01/19 05:58 Positive (Negative) A 01/01/19 20:28 Positive ng/mL (Hzlknt=518) H 01/01/19 13:40 Ur Amphetamines Screen Positive ng/mL (Guxcul=1706) H 01/01/19 13:40 U Marijuana (THC) Screen Positive ng/mL (Cutoff = 50) H 01/01/19 13:40 Hepatitis C Ab Screen Reactive (Nonreactive) H 01/01/19 13:44 Staphylococcus sp PCR DETECTED (Not Detect) A 05/08/19 13:44 Staph aureus (PCR) DETECTED (Not Detect) A 01/01/19 13:44 mecA-Methicil Res Gene DETECTED (Not Detect) A 01/01/19 13:44
--- NOTE | 2019-01-02 12:21 | Psychiatry Progress Note ---
Date of Encounter: 01/02/19 Time of Encounter: 12:12 Subjective Interval history: Called back to see client as she reportedly was willing to talk. Client was wanting this race and sports book writer to recommend she be allowed to leave. When it became clear to her that this would not be my recommendation she terminated the conversation again stating she knew her rights. Claims she will not take any more medications so we cannot help her and should just let her go. States she needs to take of her four year old daughter and pay her bills. Claims she feels physically well enough to leave and attend to these things. Unable to fully explain why doctors think she is not fit to leave at this time. When asked what her providers are telling her she says "there is something in my lungs." Believes Hepatitis is what has spread around her body and is causing infection in her lungs. Unable to tell this race and sports book writer any consequences of her leaving AMA. Eventually able to say "I guess I could " with a lot of prompting but she clearly has no insight that this is a real possibility. Unwilling to admit to any drug use. 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 However, she has track phelps all over her arms and she has been in the ER for opiate overdoses requiring Narcan. Looks to be in withdrawal now. Likely wants to leave partly due to cravings. Denies a mental health history. Denies SI/HI/AH/VH. Does not present as if she wants to but has minimal insight into how ill she is. Review of Systems Constitutional: Reports: fever Eyes: Denies: eye pain, vision change Ears, Nose, Throat: Denies: ear pain, throat pain, dental pain, hearing loss, congestion Cardiovascular: Denies: chest pain, palpitations, dyspnea on exertion Respiratory: Denies: cough, dyspnea, wheezes Gastrointestinal: Denies: abdominal pain, nausea, vomiting, diarrhea, constipation Musculoskeletal: Reports: joint pain Neurological: Reports: headache Results - Vital Signs Vital Signs: Temp Pulse Resp BP Pulse Ox 98.0 F 85 16 94/54 96 01/02/19 07:30 01/02/19 07:30 01/02/19 07:30 01/02/19 10:15 01/01/19 18:20 - Drug Levels and Toxicology Drug Levels and Toxicology: Drug Levels and Toxicity 01/01/19 13:40 Urine Opiates Screen Positive H Ur Barbiturates Screen Negative Ur Phencyclidine Scrn Negative Ur Amphetamines Screen Positive H U Benzodiazepines Scrn Negative Urine Cocaine Screen Negative U Marijuana (THC) Screen Positive H - Labs Labs: Laboratory Results - last 24 hr 01/01/19 01/01/19 01/01/19 13:40 13:44 13:44 WBC RBC Hgb Hct MCV MCH MCHC RDW Plt Count MPV Immature Gran % Seg Neutrophils % Lymphocytes % Monocytes % Eosinophils % Basophils % Neutrophils # Lymphocytes # Monocytes # Eosinophils # Basophils # Sodium Potassium Chloride Carbon Dioxide BUN Creatinine Est GFR ( Amer) Est GFR (Non-Af Amer) BUN/Creatinine Ratio Glucose Calculated Osmolality Calcium Phosphorus Magnesium Iron % Saturation Transferrin Total Bilirubin 0.5 Direct Bilirubin 0.3 H Indirect Bilirubin 0.2 AST 28 ALT 19 Alkaline Phosphatase 84 Creatine Kinase Serum Total Protein 5.4 L Albumin 3.1 L Globulin 2.3 L Albumin/Globulin Ratio 1.3 Nasal Screen MRSA (PCR) Urine Opiates Screen Positive H Ur Barbiturates Screen Negative Ur Phencyclidine Scrn Negative Ur Amphetamines Screen Positive H U Benzodiazepines Scrn Negative Urine Cocaine Screen Negative U Marijuana (THC) Screen Positive H Ur Drug Screen Interp See Below A. baumannii (PCR) Britany albicans (PCR) C. glabrata (PCR) C. krusei (PCR) C. parapsilosis (PCR) C. tropicalis (PCR) Enterobacteriac sp PCR E. cloacae complex PCR Enterococcus sp PCR E. coli (PCR) H. influenzae (PCR) Hep Bs Antigen Hep Bs Antibody Hepatitis C Ab Screen HIV Ag/Ab Combo Qual Nonreactive Klebsiella oxytoca PCR Klebsiella pneumoniae List. monocytogenes PCR N. meningitidis (PCR) Proteus species (PCR) Serratia marcescens PCR Staphylococcus sp PCR Staph aureus (PCR) mecA-Methicil Res Gene Streptococcus sp PCR Group A Strep DNA Group B Strep (PCR) Strep pneumoniae (PCR) P. aeruginosa (PCR) Don/B-Vanco Res Genes KPC (blaKPC) Detect PCR 01/01/19 01/01/19 01/01/19 13:44 13:44 20:28 WBC RBC Hgb Hct MCV MCH MCHC RDW Plt Count MPV Immature Gran % Seg Neutrophils % Lymphocytes % Monocytes % Eosinophils % Basophils % Neutrophils # Lymphocytes # Monocytes # Eosinophils # Basophils # Sodium Potassium Chloride Carbon Dioxide BUN Creatinine Est GFR ( Amer) Est GFR (Non-Af Amer) BUN/Creatinine Ratio Glucose Calculated Osmolality Calcium Phosphorus Magnesium Iron % Saturation Transferrin Total Bilirubin Direct Bilirubin Indirect Bilirubin AST ALT Alkaline Phosphatase Creatine Kinase Serum Total Protein Albumin Globulin Albumin/Globulin Ratio Nasal Screen MRSA (PCR) Positive A Urine Opiates Screen Ur Barbiturates Screen Ur Phencyclidine Scrn Ur Amphetamines Screen U Benzodiazepines Scrn Urine Cocaine Screen U Marijuana (THC) Screen Ur Drug Screen Interp A. baumannii (PCR) Not Detected Britany albicans (PCR) Not Detected C. glabrata (PCR) Not Detected C. krusei (PCR) Not Detected C. parapsilosis (PCR) Not Detected C. tropicalis (PCR) Not Detected Enterobacteriac sp PCR Not Detected E. cloacae complex PCR Not Detected Enterococcus sp PCR Not Detected E. coli (PCR) Not Detected H. influenzae (PCR) Not Detected Hep Bs Antigen Nonreactive Hep Bs Antibody 78.21 Hepatitis C Ab Screen Reactive H HIV Ag/Ab Combo Qual Klebsiella oxytoca PCR Not Detected Klebsiella pneumoniae Not Detected List. monocytogenes PCR Not Detected N. meningitidis (PCR) Not Detected Proteus species (PCR) Not Detected Serratia marcescens PCR Not Detected Staphylococcus sp PCR DETECTED A Staph aureus (PCR) DETECTED A mecA-Methicil Res Gene DETECTED A Streptococcus sp PCR Not Detected Group A Strep DNA Not Detected Group B Strep (PCR) Not Detected Strep pneumoniae (PCR) Not Detected P. aeruginosa (PCR) Not Detected Don/B-Vanco Res Genes N/A KPC (blaKPC) Detect PCR N/A 01/02/19 01/02/19 06:08 06:08 WBC 9.1 RBC 2.86 L Hgb 8.5 L Hct 24.6 L MCV 86.0 MCH 29.7 MCHC 34.6 RDW 13.2 Plt Count 119 L MPV 10.6 Immature Gran % 1.4 Seg Neutrophils % 79.3 Lymphocytes % 13.5 Monocytes % 5.6 Eosinophils % 0.1 Basophils % 0.1 Neutrophils # 7.2 Lymphocytes # 1.2 Monocytes # 0.5 Eosinophils # 0.0 Basophils # 0.0 Sodium 137 Potassium 4.2 D Chloride 113 H Carbon Dioxide 22 L BUN 13 Creatinine 0.38 L Est GFR ( Amer) > 60 Est GFR (Non-Af Amer) > 60 BUN/Creatinine Ratio 34 H Glucose 136 H Calculated Osmolality 286 Calcium 7.7 L Phosphorus 2.4 L Magnesium 1.8 Iron 67 % Saturation 31 Transferrin 156 L Total Bilirubin Direct Bilirubin Indirect Bilirubin AST ALT Alkaline Phosphatase Creatine Kinase 131 Serum Total Protein Albumin Globulin Albumin/Globulin Ratio Nasal Screen MRSA (PCR) Urine Opiates Screen Ur Barbiturates Screen Ur Phencyclidine Scrn Ur Amphetamines Screen U Benzodiazepines Scrn Urine Cocaine Screen U Marijuana (THC) Screen Ur Drug Screen Interp A. baumannii (PCR) Britany albicans (PCR) C. glabrata (PCR) C. krusei (PCR) C. parapsilosis (PCR) C. tropicalis (PCR) Enterobacteriac sp PCR E. cloacae complex PCR Enterococcus sp PCR E. coli (PCR) H. influenzae (PCR) Hep Bs Antigen Hep Bs Antibody Hepatitis C Ab Screen HIV Ag/Ab Combo Qual Klebsiella oxytoca PCR Klebsiella pneumoniae List. monocytogenes PCR N. meningitidis (PCR) Proteus species (PCR) Serratia marcescens PCR Staphylococcus sp PCR Staph aureus (PCR) mecA-Methicil Res Gene Streptococcus sp PCR Group A Strep DNA Group B Strep (PCR) Strep pneumoniae (PCR) P. aeruginosa (PCR) Don/B-Vanco Res Genes KPC (blaKPC) Detect PCR - Impressions ITS Impressions Chest CTA 01/01/19 03:39 IMPRESSION: Numerous scattered peripheral predominant ground-glass and part solid nodular opacities throughout the bilateral lungs are highly suspicious for septic pulmonary thromboemboli. The largest in the posterior basilar segment of the left lower lobe measures 2.3 cm and demonstrates mild central cavitation. Additional considerations include multifocal pneumonia and atypical infectious organisms. No intrathoracic lymphadenopathy. D/ / Ru Sessions / Ru Sessions Interpreting Provider: Ru Sessions Head CT 01/01/19 03:39 IMPRESSION: No acute intracranial abnormality. D/ / Yobani Ames MD / Yobani Ames MD Interpreting Provider: Yobani Ames MD Echocardiogram 01/01/19 07:11 Impressions: LVEF 60%. Indeterminate diastolic function. Normal right ventricular structure and function. Mild tricuspid regurgitation. Mild pulmonic regurgitation. No pulmonary hypertension. No valvular vegetation. Left Ventricular Wall Motion: Rest Echo Findings All wall segments showed normal motion. Findings: Study Quality * Technically adequate exam. ECG Findings * Normal sinus rhythm. Left Ventricle * LVEF 60%. * Normal LV chamber size, wall thickness and function. * Indeterminate diastolic function. Right Ventricle * Normal right ventricular structure and function. Left Atrium * Normal left atrial size. Right Atrium * Normal right atrial size. Mitral Valve * Normal mitral valve structure. * No mitral regurgitation. * No mitral stenosis. Aortic Valve * Trileaflet aortic valve. * No aortic regurgitation. * No aortic stenosis. Tricuspid Valve * Normal tricuspid valve structure. * Mild tricuspid regurgitation. * Estimated RA pressure is 8 mmHg. * Estimated RVSP is 25 mmHg. * No pulmonary hypertension. Pulmonic Valve * Pulmonic valve is not well visualized. * No pulmonic stenosis. * Mild pulmonic regurgitation. Pulmonary Artery * Pulmonary artery not well visualized. Aorta * Normally sized aortic root. Pericardium * There is no pericardial effusion present. Interatrial Septum * No evidence of PFO by color Doppler. IVC * The IVC is not dilated. * < 50% respiratory change. Knee X-Ray 01/01/19 08:03 IMPRESSION: 1. No acute osseous abnormality of either knee. 2. No significant joint effusions. D/ / Cedric Mckeon MD / Cedric Mckeon MD Interpreting Provider: Cedric Mckeon MD Assessment and Plan (1) Altered mental status Current visit: Yes Status: Acute Additional Plan: Client continues to lack capacity in this race and sports book writer's opinion. Cannot adequately explain to this race and sports book writer what is physically wrong with her, why she needs treatment, and what the consequences are of not getting that treatment. Denies SI/HI/AH/VH. Does not meet criteria for inpatient mental health treatment but would say she does not have the capacity to sign out AMA based on her lack of understanding of her physical health issues. Recommend inpatient residential rehab when she is medically clear. Also recommend monitoring for and treating any withdrawal which might be masked by her sepsis. Client unwilling to disclose what drugs she is currently doing but suspect she is abusing multiple substances. Can use Haldol and Ativan as needed for agitation. Would also recommend a call to [facility]. Client states daughter is with her father but that client is the one that normally care for her. Qualifiers: Altered mental status type: unspecified Qualified Code(s): R41.82 - Altered mental status, unspecified Consult Discharge Plan - Plan Referrals: NONE,PCP [Primary Care Provider] - Psychiatry Exam - Constitutional Vitals: Temp Pulse Resp BP Pulse Ox 98.0 F 85 16 94/54 96 01/02/19 07:30 01/02/19 07:30 01/02/19 07:30 01/02/19 10:15 01/01/19 18:20 General appearance: unkempt, disheveled - Musculoskeletal Gait: other Station: relaxed Strength & Tone: normal for patient - Psychiatric Patient Orientation: Yes Person, Yes Time, Yes Place Level of alertness: Alert Behavior: agitated, uncooperative Psychomotor activity: Increased Eye Contact: Maintains Eye Contact Mood Description: Angry Affect description: congruent with mood Speech Volume: Normal Speech pattern: normal rate, normal rhythm, normal tone, fluent, spontaneous Language & Vocabulary: consistent with education Thought Process: Linear Thought Content: No Suicidal ideation, No Homicidal ideation, No Overt delusions Perceptual Disturbances: No Auditory hallucinations, No Visual hallucinations Attention Span Ability: Capable of Focused Attention Memory Description: Grossly Intact Patient Reliability: Not Reliable Historian Fund of knowledge: Yes abstraction ability Intelligence Estimate: Average Judgment: Poor Insight: Minimal
--- NOTE | 2019-01-02 13:52 | Orthopedics Progress Note ---
Date of Encounter: 01/02/19 Time of Encounter: 12:00 - Assessment and Plan (1) Bilateral anterior knee pain Current Visit: Yes Status: Resolved per patient (2) IV drug user Current Visit: Yes Status: Acute (3) Erythema Current Visit: Yes Status: Acute (4) Ecchymosis Current Visit: Yes Status: Acute (5) Bilateral knee swelling Current Visit: Yes Status: Acute Subjective Principal diagnosis: knee pain Interval history: Patient seen and examined today. Patient alert and oriented and conversive. Patient cooperative with examination Resting comfortably in bed in no acute distress B/l knees examined, left again mildly erythematous more than right. Mild anterior knee swelling noted bilaterally, again, right worse than left. Ecchymosis noted to bilateral distal patellar aspects. Abrasions noted to right mario. In discussion with patient, she denies knowledge of any injury to her knees, however, notes that her b/l knee pain is what caused her to present to [facility] initially. Based on recorded patient history and repeat examination, appears as though she may have fallen onto her bilateral knees. At this point, patient is denying any pain in her bilateral knees. Clinical picture again appears to be contusion to b/l anterior knees Encouraged ice and topical pain relief creams as well as oral anti-inflammatory medications as needed and as approved by medical team. Thank you for this consultation. Follow up as needed with orthopedic services. Objective Vital signs: Vital Signs Temp Pulse Resp BP Pulse Ox 01/02/19 11:30 98.1 F 95 18 90/58 01/02/19 10:15 94/54 01/02/19 07:30 98.0 F 85 16 95/64 01/02/19 06:11 98/67 01/02/19 05:43 76/46 01/02/19 04:36 86/48 01/02/19 02:56 98.1 F 99 16 87/53 01/01/19 23:30 98.7 F 87 14 82/52 01/01/19 21:07 83 16 106/64 01/01/19 20:07 97.6 F 94 16 82/62 01/01/19 20:00 92 01/01/19 18:20 85 18 96 01/01/19 16:30 88 18 82/50 98 01/01/19 15:00 93 20 91/60 99 01/01/19 13:45 110 18 96 Intake and Output 01/01/19 01/02/19 01/02/19 23:59 07:59 15:59 Intake Total 1450 / 2965 1104 / 2594 1490 / 2594 Output Total 900 / 1900 Balance 550 / 1065 1104 / 2594 1490 / 2594 Intake: IV Fluids 1350 / 2625 1104 / 2354 1250 / 2354 0.9 % Sodium Chloride 1,000 ML 1000 / 1000 1004 / 2004 1000 / 2004 @ 150 mls/hr IVC .Q6H40M [facility] Rx #:[id number] Zosyn 3.375 GM In 0.9 % Sodium 100 / 100 100 / 100 Chloride (Mini-Bag +) 100 ML @ 25 mls/hr IVPB Q8HR [facility]ADDIE Rx#: [id number] Vancocin 1,000 MG In 0.9 % 250 / 500 250 / 250 Sodium Chloride 250 ML @ 167 mls/hr IVPB Q8H [facility]ADDIE Rx#: [id number] Oral 100 / 340 240 / 240 Output: Urine 900 / 1900 Other: Meal Lunch Percent of Meal Consumed 75% # Voids 2 Weight 68.5 kg Patient Weight 01/02/19 23:59 Weight 68.5 kg - Labs CBC & BMP: 01/02/19 06:08 01/02/19 06:08 Labs: Abnormal lab results RBC 2.86 M/mcL (3.82-4.97) L 01/02/19 06:08 Hgb 8.5 g/dL (11.5-15.4) L 01/02/19 06:08 Hct 24.6 % (35.3-44.9) L 01/02/19 06:08 Plt Count 119 K/mcL (140-400) L 01/02/19 06:08 Slight Decrease (Normal) L 01/01/19 08:22 Sodium 132 mEq/L (136-145) L 01/01/19 08:22 Potassium 3.2 mEq/L (3.5-5.1) L 01/01/19 08:22 Chloride 113 mEq/L (98-107) H 01/02/19 06:08 Carbon Dioxide 22 mEq/L (23-29) L 01/02/19 06:08 0.38 mg/dL (0.60-1.20) L 01/02/19 06:08 34 (6-26) H 01/02/19 06:08 Glucose 136 mg/dL (70-105) H 01/02/19 06:08 277 (280-300) L 01/01/19 08:22 Calcium 7.7 mg/dL (8.6-10.3) L 01/02/19 06:08 Phosphorus 2.4 mg/dL (2.7-4.5) L 01/02/19 06:08 Magnesium 1.4 mg/dL (1.6-2.6) L 01/01/19 08:22 156 mg/dL (203-362) L 01/02/19 06:08 0.3 mg/dL (0.0-0.2) H 01/01/19 13:44 5.4 g/dL (6.4-8.9) L 01/01/19 13:44 3.1 g/dL (3.5-5.7) L 01/01/19 13:44 2.3 g/dL (2.4-3.5) L 01/01/19 13:44 CSF Tot Nucleated Cells 6 TNC/mcL (0-5) H 01/01/19 05:58 Positive (Negative) A 01/01/19 20:28 Positive ng/mL (Orbjdv=674) H 01/01/19 13:40 Ur Amphetamines Screen Positive ng/mL (Cptjtz=8366) H 01/01/19 13:40 U Marijuana (THC) Screen Positive ng/mL (Cutoff = 50) H 01/01/19 13:40 Hepatitis C Ab Screen Reactive (Nonreactive) H 01/01/19 13:44 Staphylococcus sp PCR DETECTED (Not Detect) A 01/01/19 13:44 Staph aureus (PCR) DETECTED (Not Detect) A 01/01/19 13:44 mecA-Methicil Res Gene DETECTED (Not Detect) A 01/01/19 13:44 Consult Discharge Plan - Plan Referrals: NONE,PCP [Primary Care Provider] -
[2019-01-02] MEDS: Nicotine 21 MG PATCH.TD24 TD SCH (14:30)
[2019-01-02] MEDS: *HR* LORazepam 1 MG TABLET PO PRN (15:03)
[2019-01-02 15:22] LABS: Ferritin 174 ng/mL (10-120)
[2019-01-02 15:31] LABS: Folate 9.8 ng/mL (3.0-16.0)
[2019-01-02] MEDS: Gabapentin 300 MG CAPSULE PO SCH (21:29)
[2019-01-03] MEDS: 0.9 % Sodium Chloride 1,000 ML IVC SCH ×5 (05:01→14:49)
[2019-01-03] MEDS: *HR* Heparin 5,000 UNIT/ML VIAL SQ SCH ×2 (05:02→17:26)
[2019-01-03] MEDS: Nicotine 21 MG PATCH.TD24 TD SCH (08:26)
[2019-01-03] MEDS: Gabapentin 300 MG CAPSULE PO SCH (08:26)
[2019-01-03 08:58] LABS: Basophils % 0.2 %; Eosinophils % 0.6 %; Hematocrit 25.3 % (35.3-44.9); Hemoglobin 8.6 g/dL (11.5-15.4); Immature Granulocytes % 0.6 % (0-4); Lymphocytes # 1.8 K/mcL (0.6-4.6); Mean Corpuscular Hemoglobin 29.2 pg (28.0-33.3); Mean Corpuscular Volume 85.8 fL (83.0-100.0); Mean Platelet Volume 10.4 fL (9.4-12.4); Monocytes # 0.2 K/mcL (0.0-1.3); Monocytes % 3.8 %; Neutrophils # 3.1 K/mcL (1.6-8.9); Platelet Count 174 K/mcL (140-400); Red Blood Count 2.95 M/mcL (3.82-4.97); Red Cell Distribution Width 13.5 % (11.5-14.5); Segmented Neutrophils % 59.8 %
[2019-01-03 09:07] LABS: BUN/Creatinine Ratio 13 (6-26); Blood Urea Nitrogen 6 mg/dL (6-20); Calcium 8.6 mg/dL (8.6-10.3); Carbon Dioxide 26 mEq/L (23-29); Chloride 109 mEq/L (98-107); Glucose 106 mg/dL (70-105); Magnesium 1.6 mg/dL (1.6-2.6); Osmolality,Calculated 292 (280-300); Potassium 3.5 mEq/L (3.5-5.1); Sodium 142 mEq/L (136-145); Vancomycin,Trough 11 mcg/mL (5-10); eGFR For Non-African Americans > 60 (> 60)
[2019-01-03] MEDS: *HR* LORazepam 1 MG TABLET PO PRN ×2 (09:52→14:55)
--- NOTE | 2019-01-03 11:17 | Internal Med Progress Note ---
Hospitalist Progress Note - Encounter Date of Encounter: 01/03/19 Time of Encounter: 11:15 - Subjective Interval History: Patient was agitated in the morning therefore Ativan given and now calmed down. Sitter at bedside. Review of the lab. Denies fever chills vomiting headache dizziness chest pain short of breath abdominal pain diarrhea - Exam Vitals: Temp Pulse Resp BP Pulse Ox 98.2 F 97 16 104/56 98 01/03/19 07:39 01/03/19 07:39 01/03/19 07:39 01/03/19 07:39 01/03/19 04:00 Exam: General appearance: No acute distress, Eye exam: EOMI, PERRLA ENT exam: Moist oral mucosa Neck nontender, supple Respiratory exam: Slight decreased breath sounds bilaterally with few crackles Cardiovascular exam: Regular rate and rhythm, no systolic murmur Abdominal exam: Soft, nontender, nondistended, positive bowel sounds Extremities exam: No calf tenderness, no pedal edema Present: Skin- Multiple tattoos. Herpes labialis Neurological exam: Alert, awake, oriented 3, CN II-XII intact, no focal deficits. No facial droop. Flat affect now. Agitated in the morning - Assessment and Plan (1) Severe sepsis Current Visit: Yes Status: Acute Assessment and Plan: Pt comes in with fever of 104 , tachycardia up to the 130 adn hypotension with BP in the 70s likely due to severe sepsis Differentials include severe sepsis from viral meningitis vs multifocal pneumonia vs infective endocarditis vs septic arthritis -Viral meningitis. CSF shows mildly elevated WBC at 6 with 80% lymphocytes. On vanc ceftriaxone and acyclovir- neurologist on board and is stopped ceftriaxone. -Multifocal pneumonia- chest CT shows multiple scattered groud glass opacities. On antibiotics. Azithromycin for atypical coverage. Obtain gojetbqi-[id number]-[id number] cocci urine strep and legionella antigen-negative -Infective endocarditis- Known IV drug abuse with septic emboli on CT chest. Continue antibiotics vancomycin and Zosyn. ID consultation. , obtained 2D echo- impressions: LVEF 60%. Indeterminate diastolic function. Normal right ventricular structure and function. Mild tricuspid regurgitation. Mild pulmonic regurgitation. No pulmonary hypertension. No valvular vegetation. Left Ventricular Wall Motion: Rest Echo Findings All wall segments showed normal motion. -Septic arthirits- Left knee joint warm and swollen to touch. On antibiotics. Orthpedic surgery consulted-advise for medical management and continuation of antibiotic (2) Bacteremia Current Visit: Yes Status: Acute Assessment and Plan: Blood cultures drawn 12/31/18 are positive 2/2 sets for MRSA. Repeat blood cultures drawn 01/01/19 are positive for MRSA Repeat blood culture drawn 01/02/2019-with no growth head Continue vancomycin. ID on board (3) Multifocal pneumonia Current Visit: Yes Status: Acute Assessment and Plan: Based on CT chest report as mentioned above. Reviewed cabin service agent note -there is suspicion for septic emboli in from pulmonary standpoint treatment with antibiotic as per ID recommendation. No plan for invasive testing such as bronchoscopy. Patient is chronic smoker and advised to quit smoking. Continue DuoNeb, antibiotic vancomycin and Zosyn (4) Viral meningitis Current Visit: Yes Status: Acute Assessment and Plan: Suspected based on above clinical presentation. Neurologist consulted and has low suspicion for a viral meningitis but advise to continue acyclovir as patient also has herpes labialis and unable to fully exclude herpes encephalitis as cause of altered mental status. HIV and hepatitis B nonreactive but hepatitis C reactive-possible chronic hepatitis C On admission started patient on vanc, ceftriaxone, acyclovir and dexamethasone. Appreciate neurology recommendations (5) Infective endocarditis Current Visit: Yes Status: Acute (6) Septic arthritis Current Visit: Yes Status: Acute Assessment and Plan: Left knee joint warm and swollen. Orthopedic surgery on board as mentioned above (7) Anemia Current Visit: Yes Status: Acute Assessment and Plan: Low hemoglobin but no active bleeding. Iron profile, ferritin-reviewed. Low Normal vitamin B12. Normal full. and folic acid ordered. A stool occult pending. Will transfuse PRC if hemoglobin less than 7 or active bleeding (8) Altered mental status Current Visit: Yes Status: Acute Assessment and Plan: Unknown baseline. Patient has been agitated intermittently -Ativan when necessary helping her. Patient also got pink slipped in the ER. Therefore psychiatric consulted-of note,Does not meet criteria for inpatient mental health treatment but would say she does not have the capacity to sign out AMA based on her lack of understanding of her physical health issues.Recommend inpatient residential rehab when she is medically clear. Also recommend monitoring for and treating any withdrawal which might be masked by her sepsis. Client unwilling to disclose what drugs she is currently doing but suspect she is abusing multiple substances. Can use Haldol and Ativan as needed for agitation. Would also recommend a call to [facility]. Appreciate psychiatrist recommendation .licensed clinical social worker on board. Denies suicidal or homicidal thoughts or ideas (9) Goals of care, counseling/discussion Current Visit: Yes Status: Acute Assessment and Plan: Difficult situation as patient get agitated and also refusing medical treatment want to go home. Appreciate psychiatrist and 7th grade social studies teacher input (10) DVT prophylaxis Current Visit: Yes Status: Acute Assessment and Plan: heparin sc - Time Spent with Patient Total time spent is greater than 50% in coordination of care (as documented) at patient's floor/unit and/or counseling patient: 25 - 35 minutes Plan of Care Discussed with: social work Internal Medicine: Result - Labs CBC & Chem 7: 01/03/19 08:00 01/03/19 08:00 Labs: Short CBC 01/03/19 Range/Units 08:00 WBC 5.2 (4.3-11.1) K/mcL Hgb 8.6 L (11.5-15.4) g/dL Hct 25.3 L (35.3-44.9) % Plt Count 174 (140-400) K/mcL Neutrophils # 3.1 (1.6-8.9) K/mcL BMP 01/02/19 01/03/19 06:08 08:00 Sodium 137 142 Potassium 4.2 D 3.5 Chloride 113 H 109 H Carbon Dioxide 22 L 26 BUN 13 6 Creatinine 0.38 L 0.48 L Glucose 136 H 106 H Calcium 7.7 L 8.6 Consult Discharge Plan - Plan Referrals: NONE,PCP [Primary Care Provider] - (5) Infective endocarditis Qualifiers: Qualified Code(s): I33.0 - Acute and subacute infective endocarditis (6) Septic arthritis Qualifiers: Qualified Code(s): M00.9 - Pyogenic arthritis, unspecified (7) Anemia Qualifiers: Anemia type: unspecified type Qualified Code(s): D64.9 - Anemia, unspecified (8) Altered mental status Qualifiers: Altered mental status type: unspecified Qualified Code(s): R41.82 - Altered mental status, unspecified
--- NOTE | 2019-01-03 13:35 | Infectious Disease Progress No ---
ID Progress Note Date of Encounter: 01/03/19 Time of Encounter: 09:45 - Subjective Subjective: Patient seen and examined. No acute events noted overnight. According to nursing, patient being noncompliant with treatment plan and wants to leave but is currently pink-slipped. Denies fevers, chills, or rigors. Denies chest pain, shortness of breath, or cough. Denies nausea, vomiting, diarrhea, or constipation. Denies abdominal pain or urinary complaints. Denies back, joint, or extremity pain. Denies oral thrush or skin lesions. Patient tells me she feels like she is withdrawing and is willing to stay and pursue treatment if we treat her withdrawal symptoms adequately. - Objective CBC & Chem 7: 01/03/19 08:00 01/03/19 08:00 - Exam Vitals: Temp Pulse Resp BP Pulse Ox 98.3 F 74 16 116/78 98 01/03/19 11:47 01/03/19 11:47 01/03/19 11:47 01/03/19 11:47 01/03/19 04:00 Exam: Head: Atraumatic, normal inspection, normocephalic. Eye: EOMI, PERRLA, no scleral icterus noted. No subconjunctival hemorrhage noted. ENT: Mucous membranes moist. No odontogenic infection noted. Scabbed lesions noted to the upper and lower lips. Neck: Normal inspection, no meningismus. Respiratory: Clear to auscultation. No rales, respiratory distress, rhonchi, or wheezes noted. Cardiovascular: Regular rate and rhythm, S1 and S2 audible. No murmurs, rubs, or gallops. GI: Soft, nondistended, normal bowel sounds. Extremities:No joint swelling, pedal edema, or tenderness noted. No endocarditis stigmata noted. Back: Normal inspection. No vertebral tenderness noted. Neurological: Alert, oriented 3, no focal deficits. Psychiatric: normal affect, normal mood. Skin: Dry, intact, warm. Normal color. No rashes. - Assessment and Plan (1) Severe sepsis Current Visit: Yes Status: Acute The patient had two SIRS criteria with hypotension responsive to IV fluids on admission. Likely secondary to bacteremia. Improved. Tachycardia and tachypnea resolved. Continues to have some h ypotension. Blood cultures drawn 12/31/18 are positive 2/2 sets for MRSA. Repeat blood cultures drawn 01/01/19 are positive 2/2 sets as well. SNOMED Code(s): 91133595 (2) Bacteremia Current Visit: Yes Status: Acute Causative organism: MRSA. Source: IVDU Blood cultures drawn 12/31/18 are positive 2/2 sets for MRSA. Repeat blood cultures drawn 01/01/19 are positive as well. Complicated due to septic emboli in the lungs. No endocarditis stigmata noted on exam. TTE negative for vegetations. Currently on Vanc. SNOMED Code(s): 6256294 (3) Septic embolism Current Visit: Yes Status: Acute Noted on the CT chest 01/01/2019. Likely secondary to bacteremia with septic emboli. SNOMED Code(s): 345298924, 369514535 (4) Headache Current Visit: Yes Status: Resolved Resolved. No signs of encephalitis or meningitis on clinical picture. LP reviewed WBC count 6 with 85% neutrophils, negative Gram stain, normal glucose and protein. Qualifiers: Headache type: unspecified Headache chronicity pattern: acute headache Intractability: not intractable Qualified Code(s): R51 - Headache SNOMED Code(s): 92695888 (5) Herpes labialis without complication Current Visit: Yes Status: Acute Completed oral course of Valtrex. SNOMED Code(s): 1041301 (6) IV drug user Current Visit: Yes Status: Acute Last time she used was 2 weeks prior to admission. States she was using heroine and meth prior to admission. HIV nonreactive. Hep B immune. Hep C positive. SNOMED Code(s): 473490255 (7) Hepatitis C Current Visit: Yes Status: Acute Qualifiers: Viral hepatitis chronicity: chronic Hepatic coma status: without hepatic coma Qualified Code(s): B18.2 - Chronic viral hepatitis C SNOMED Code(s): 99505999 (8) Anxiety Current Visit: Yes Status: Acute Currently pink-slipped by the ER physician and non-compliant with treatment plan and wants to sign out AMA. Psych evaluation noted. Recommend aggressive withdrawal management so the patient will remain compliant with treatment. SNOMED Code(s): 56768060 - Recommendations Recommendations: Await repeat blood cultures. Recommend AGA prior to discharge. Withdrawal management per the primary team. Continue Vancomycin IV. Pharmacy to dose. Goal trough ~15. Duration of treatment depends on the clinical picture, but likely a total of 4-6 weeks. Monitor renal function and for drug toxicity and dose-adjust antibiotics. deputy sheriff court services to assist with discharge planning. Avoid long-term IV access insertion until repeat blood cultures are negative x 48 hours. Consult Discharge Plan - Plan Referrals: NONE,PCP [Primary Care Provider] - - Attending Attestation I have personally performed a face to face evaluation on this patient. I have reviewed and agree with the care plan. History and Exam by me shows: Patient seen and examined. Clinically she was doing great. She actually was in a great mood. Patient apparently refused a few doses of the vancomycin previously does for her Vanco trough is still not therapeutic. Came to my attention that the patient pink slip was given at 1600 today. Psychiatry has signed off. Patient will be free to do whatever she wants. I walked in to see the patient again with the nursing staff at bedside and the sitter in the room as well. I had a long discussion with the patient regarding the severity of her situation and how if we do not treat this appropriately she has very high morbidity and mortality rate. She seems very understanding initially but she cried installments she is very weak and she thinks she will fail. I asked nursing staff to talk to the hospital see if we can give her some Haldol. Patient I believe genuinely wants to try but I think she is overwhelmed with the multiple withdrawal symptoms that she has. I explained to patient that we will try everything we can to keep her calm and not to go through the withdrawal symptoms. She is currently on nicotine patch and gabapentin for her restless leg syndrome and Atrovent every 4 hours. Patient was very emotional during the conversation. Nursing was also do and they were very supportive and we both treated with her and told her that we will her well-being. I hope she decides to stay. If she stays we will continue vancomycin with goal vancomycin trough 15-20. Duration of treatment probably four weeks for first negative culture if AGA remains negative
[2019-01-03 15:20] VITALS: BP 107/72
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
[2019-01-03 20:29] LABS: HSV Source CSF
[2019-01-04] MEDS ORDERED: Cyanocobalamin (B-12) 1,000 MCG TABLET PO SCH (09:00)
== END 2019-01-03 17:55 | disposition left against medical advice (07) | DRG 871 ==
LOC: EMEROOARM 03:37 → 2NNU 03:37 → 2ANU 01-02 18:26
PROVIDERS: ADMIT Internal Medicine; ATTEND Internal Medicine